=== PATIENT | male | born 1955 ===

== ENCOUNTER → 2019-06-17 10:55 | Outpatient (CLI) | payer OTHER, MEDICAID, SELFPAY ==
[2019-06-17 12:02] LABS: Hemoglobin A1C% w Est Avg Glu 7.1 % (4.0-6.0)
[2019-06-17 12:11] LABS: BUN Creatinine Ratio 16.7 (6-22); Blood Urea Nitrogen 15 mg/dL (9-20); Calcium 9.6 mg/dL (8.4-10.2); Carbon Dioxide 28 mmol/L (22-32); Chloride 102 mmol/L (98-107); Estimated Glomerular Filt Rate > 60.0 mL/min (>60); Glucose 140 mg/dL (80-110); HEMOLYSIS < 15 (0-50); Potassium 4.1 mmol/L (3.4-5.1); Sodium 137 mmol/L (137-145)
== END ==
PROVIDERS: Referring Provider Family Medicine; Visit Provider Family Medicine
DX: R73.03 Prediabetes (principal); I10 Essential (primary) hypertension
CPT/HCPCS: 36415; 80048; 83036

== ENCOUNTER → 2019-09-11 11:29 | Outpatient (CLI) | payer OTHER, MEDICAID, SELFPAY ==
[2019-09-11 12:56] LABS: Add Manual Diff / Slide Review NO; Basophils Absolute Auto 0 /uL (0-100); Basophils Percent Auto 0.4 % (0-2); Eosinophils Absolute Auto 400 /uL (0-450); Hemoglobin 15.7 g/dL (13.5-17.5); Lymphocytes Absolute Auto 1500 /uL (1100-4500); Lymphocytes Percent Auto 15.8 % (25-40); Mean Corpuscular HGB Conc 35.7 % (30-36); Mean Corpuscular Hemoglobin 32.4 PG (26-34); Mean Corpuscular Volume 90.9 fL (80-100); Monocytes Absolute Auto 800 /uL (0-900); Monocytes Percent Auto 8.2 % (3-14); Neutrophils Absolute Auto 6700 /uL (1500-7000); Neutrophils Percent Auto 71.6 % (50-75); Platelet Count 195 X10^3/uL (150-400); Red Blood Cell Count 4.85 X10^6/uL (4.5-5.9); Red Cell Distribution Width 12.7 % (11.6-14.8); White Blood Cell Count 9.3 X10^3/uL (4.5-11.0)
[2019-09-11 13:31] LABS: BUN Creatinine Ratio 17.1 (6-22); Blood Urea Nitrogen 13 mg/dL (9-20); Calcium 9.9 mg/dL (8.4-10.2); Carbon Dioxide 27 mmol/L (22-32); Chloride 100 mmol/L (98-107); Cholesterol 175 mg/dL (140-199); Estimated Glomerular Filt Rate > 60.0 mL/min (>60); Glucose 181 mg/dL (80-110); HDL Cholesterol 47 mg/dL (40-60); HEMOLYSIS < 15 (0-50); LDL Cholesterol Calculated 82 mg/dL (<100); Potassium 4.5 mmol/L (3.4-5.1); Sodium 137 mmol/L (137-145); Triglycerides 231 mg/dL (35-150)
== END ==
PROVIDERS: Referring Provider Internal Medicine Cardiovascular Disease; Visit Provider Internal Medicine Cardiovascular Disease
DX: I10 Essential (primary) hypertension (principal)
CPT/HCPCS: 36415; 80048; 80061; 85025

== ENCOUNTER → 2020-01-29 11:34 | Outpatient (CLI) | payer MEDICARE, MEDICAID, SELFPAY ==
[2020-01-29 12:44] LABS: BUN Creatinine Ratio 19.5 (6-22); Blood Urea Nitrogen 15 mg/dL (9-20); Calcium 9.6 mg/dL (8.4-10.2); Carbon Dioxide 26 mmol/L (22-32); Chloride 102 mmol/L (98-107); Cholesterol 160 mg/dL (140-199); Estimated Glomerular Filt Rate > 60.0 mL/min (>60); Glucose 151 mg/dL (80-110); HDL Cholesterol 48 mg/dL (40-60); HEMOLYSIS < 15 (0-50); LDL Cholesterol Calculated 76 mg/dL (<100); Potassium 4.5 mmol/L (3.4-5.1); Sodium 136 mmol/L (137-145); Triglycerides 180 mg/dL (35-150)
== END ==
PROVIDERS: Nurse Practitioner; Referring Provider Internal Medicine Cardiovascular Disease; Visit Provider Internal Medicine Cardiovascular Disease
DX: I10 Essential (primary) hypertension (principal); E78.1 Pure hyperglyceridemia
CPT/HCPCS: 36415; 80048; 80061

== ENCOUNTER → 2020-10-30 11:28 | Outpatient (CLI) | payer MEDICARE, SELFPAY ==
[2020-10-30 12:04] LABS: Add Manual Diff / Slide Review NO; Basophils Absolute Auto 0 /uL (0-100); Basophils Percent Auto 0.3 % (0-2); Eosinophils Absolute Auto 200 /uL (0-450); Eosinophils Percent Auto 2.8 % (2-4); Hemoglobin 15.6 g/dL (13.5-17.5); Lymphocytes Absolute Auto 1300 /uL (1100-4500); Lymphocytes Percent Auto 17.9 % (25-40); Mean Corpuscular HGB Conc 34.6 % (30-36); Mean Corpuscular Hemoglobin 31.3 PG (26-34); Mean Corpuscular Volume 90.6 fL (80-100); Monocytes Absolute Auto 700 /uL (0-900); Monocytes Percent Auto 10.1 % (3-14); Neutrophils Absolute Auto 4900 /uL (1500-7000); Neutrophils Percent Auto 68.9 % (50-75); Platelet Count 187 X10^3/uL (150-400); Red Blood Cell Count 4.97 X10^6/uL (4.5-5.9); Red Cell Distribution Width 12.4 % (11.6-14.8); White Blood Cell Count 7.2 X10^3/uL (4.5-11.0)
[2020-10-30 12:15] LABS: Alanine Aminotransferase 37 IU/L (<50); Albumin 4.4 g/dL (3.5-5.0); Albumin Globulin Ratio 1.4 (1.0-2.8); Alkaline Phosphatase 97 U/L (38-126); Aspartate Aminotransferase 32 IU/L (17-59); BUN Creatinine Ratio 23.1 (6-22); Bilirubin Total 0.6 mg/dL (0.2-1.3); Blood Urea Nitrogen 15 mg/dL (9-20); Calcium 9.6 mg/dL (8.4-10.2); Carbon Dioxide 23 mmol/L (22-32); Chloride 104 mmol/L (98-107); Cholesterol 147 mg/dL (140-199); Estimated Glomerular Filt Rate > 60.0 mL/min (>60); Globulin 3.2 g/dL (1.7-4.1); Glucose 157 mg/dL (80-110); HDL Cholesterol 50 mg/dL (40-60); HEMOLYSIS < 15 (0-50); LDL Cholesterol Calculated 77 mg/dL (<100); Potassium 4.2 mmol/L (3.4-5.1); Sodium 137 mmol/L (137-145); Total Protein 7.6 g/dL (6.3-8.2); Triglycerides 99 mg/dL (35-150)
[2020-10-30 12:17] LABS: Hemoglobin A1C% w Est Avg Glu 7.7 % (4.0-6.0)
[2020-10-30 12:45] LABS: Prostate Specific Antigen Scrn 0.622 ng/mL (0.1-4.0)
[2020-10-30 15:19] LABS: Creatinine Urine Random 223.9 mg/dL
[2020-10-30 15:24] LABS: Microalbumin Urine Random 0.9 mg/dL (0-1.6)
== END ==
PROVIDERS: PCP Family Medicine; Referring Provider Family Medicine; Visit Provider Family Medicine
DX: E11.9 Type 2 diabetes mellitus without complications (principal); Z12.5 Encounter for screening for malignant neoplasm of prostate; E78.5 Hyperlipidemia, unspecified; I10 Essential (primary) hypertension; Z00.00 Encounter for general adult medical examination without abnormal findings
CPT/HCPCS: 36415; 80053; 80061; 82043; 82570; 83036; 85025; G0103

== ENCOUNTER → 2020-11-17 09:11 | Outpatient (CLI) | payer MEDICARE, SELFPAY ==
--- NOTE | 2020-11-17 15:50 | DIET.PN ---
Initial Diabetes MNT Assessment Name: Sarwat Roberts Date: 11/17/20 Time: 9:15-10am Dx: Type II Diabetes Provider: Low Vance Learning Style: Reading PMH: HLD, HTN, Psoriasis Sarwat has been newly diagnosed with T2DM. States he does not understand why his readings are high. Has been ?borderline? for a long time. Last two HgA1c have been >7%. Denies intake of ETOH, soda with sugar, or any refined sugars Likes bread, vegetables. He is unclear if this is genetic or lifestyle, or both. FH of DM paternal uncle. Preparing food is a ?chore?. Batch cooks meals. Shops at [employer], sometimes [employer]. States it is very important for him to learn about diabetes and make changes. Hearing is a barrier to education today--left his hearing aids at home. States he sometimes feels fatigue after eating 2 sandwiches. Will often nap after this meal. Also avoids eating on road trips to avoid fatigue. Seems likely he is experiencing hyperglycemia resulting in fatigue. Diet Recall: Morninc coffee with unsweetened cream or black 2p: 2 pieces chicken with a couple pieces of sushi (yesterday) or 2-3 eggs with 2 toast 5-6p: grazing until bed includes, bowl of peas with salt and parmesan, 2 spoons of pie, and additional foods he cannot recall Beverages: 32oz water, OJ sometimes Anthropometrics: Ht: 6?2? Wt:285.5# Weight changes: -10# in summer, re-gain back in winter Physical Activity: Barrier toe nail growth makes shoes uncomfortable to exercise in. 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 Currently using rowing machine (50 reps), elliptical (30 min) and resistance bands (10 min) most days. Self-Monitoring Blood Glucose: None currently, though he is interested in starting. Pertinent Labs: HgA1c: 7.7% H Diabetes Medications: 500 mg Metformin. Has not increased to BID yet. Nutrition Rx: Carbohydrates: Meal:30-60g (to start-reevaluate next visit) Snack:15-30g Nutrition Diagnosis: - Nutrition and food related knowledge deficit r/t new T2DM dx aeb pt report and HgA1c - Inconsistent energy intake r/t nutrition knowledge deficit aeb diet recall -Self monitoring deficit r/t new T2DM and not yet monitoring BG aeb Pt report Intervention: This participant was very receptive. Provided appropriate educational handouts. Discussed the following topics: - Completed intake assessment. Discussed barriers to care. - Pathophysiology of T2DM - HgA1c , diagnosis, and goal - Importance of self-monitoring, how often, and when to check. Suggested checking at different times to evaluate meals -Plate Method, impact of macronutrients on blood sugar - Rec servings for carbohydrates at meals and snacks - Heart health nutrition - Role of physical activity and following provider guidelines for safety - Created SMART goals for pt self-care and success - Provided written diabetes information for further review at home Goals: - Aim for 30-60g CHO per meal to start - Add protein to each meal - Check with provider and pharmacy for SMBG supplies (bring next visit) - Increase Metformin to BID as rx?d by provider Follow-up: GREG MOON follow-up in 2 weeks Topics to review next visit: meal timing, carb counting, pairing macronutrients and spreading out CHO, meal planning Rosanna Barrow RDN, SARAI Certified Diabetes Care and Shoemaker Apprentice P: [phone] Thank you for this referral :
== END ==
PROVIDERS: PCP Family Medicine; Referring Provider Family Medicine; Visit Provider Family Medicine
DX: E11.9 Type 2 diabetes mellitus without complications (principal); Z71.3 Dietary counseling and surveillance; Z79.84 Long term (current) use of oral hypoglycemic drugs; E78.5 Hyperlipidemia, unspecified; I10 Essential (primary) hypertension; L40.9 Psoriasis, unspecified; E66.9 Obesity, unspecified; Z68.36 Body mass index [BMI] 36.0-36.9, adult
CPT/HCPCS: 97802

== ENCOUNTER → 2020-12-01 09:53 | Outpatient (CLI) | payer MEDICARE, SELFPAY ==
--- NOTE | 2020-12-01 10:24 | DIET.PN1 ---
Initial Diabetes MNT Assessment Name: Sarwat Roberts Date: 11/17/20 Time: 9:15-10am Dx: Type II Diabetes Provider: Low Vance Learning Style: Reading PMH: HLD, HTN, Psoriasis Sarwat has been newly diagnosed with T2DM. States he does not understand why his readings are high. Has been ?borderline? for a long time. Last two HgA1c have been >7%. Denies intake of ETOH, soda with sugar, or any refined sugars Likes bread, vegetables. He is unclear if this is genetic or lifestyle, or both. FH of DM paternal uncle. Preparing food is a ?chore?. Batch cooks meals. Shops at [employer], sometimes [employer]. States it is very important for him to learn about diabetes and make changes. Hearing is a barrier to education today--left his hearing aids at home. States he sometimes feels fatigue after eating 2 sandwiches. Will often nap after this meal. Also avoids eating on road trips to avoid fatigue. Seems likely he is experiencing hyperglycemia resulting in fatigue. Diet Recall: Morninc coffee with unsweetened cream or black 2p: 2 pieces chicken with a couple pieces of sushi (yesterday) or 2-3 eggs with 2 toast 5-6p: grazing until bed includes, bowl of peas with salt and parmesan, 2 spoons of pie, and additional foods he cannot recall Beverages: 32oz water, OJ sometimes Anthropometrics: Ht: 6?2? Wt:285.5# Weight changes: -10# in summer, re-gain back in winter Physical Activity: Barrier toe nail growth makes shoes uncomfortable to exercise in. 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 Currently using rowing machine (50 reps), elliptical (30 min) and resistance bands (10 min) most days. Self-Monitoring Blood Glucose: None currently, though he is interested in starting. Pertinent Labs: HgA1c: 7.7% H Diabetes Medications: 500 mg Metformin. Has not increased to BID yet. Nutrition Rx: Carbohydrates: Meal:30-60g (to start-reevaluate next visit) Snack:15-30g Nutrition Diagnosis: - Nutrition and food related knowledge deficit r/t new T2DM dx aeb pt report and HgA1c - Inconsistent energy intake r/t nutrition knowledge deficit aeb diet recall -Self monitoring deficit r/t new T2DM and not yet monitoring BG aeb Pt report Intervention: This participant was very receptive. Provided appropriate educational handouts. Discussed the following topics: - Completed intake assessment. Discussed barriers to care. - Pathophysiology of T2DM - HgA1c , diagnosis, and goal - Importance of self-monitoring, how often, and when to check. Suggested checking at different times to evaluate meals -Plate Method, impact of macronutrients on blood sugar - Rec servings for carbohydrates at meals and snacks - Heart health nutrition - Role of physical activity and following provider guidelines for safety - Created SMART goals for pt self-care and success - Provided written diabetes information for further review at home Goals: - Aim for 30-60g CHO per meal to start - Add protein to each meal - Check with provider and pharmacy for SMBG supplies (bring next visit) - Increase Metformin to BID as rx?d by provider Follow-up: GREG MOON follow-up in 2 weeks Topics to review next visit: meal timing, carb counting, pairing macronutrients and spreading out CHO, meal planning Rosanna Barrow RDN, [facility] Certified Diabetes Care and Rn School P: [phone] Thank you for this referra
--- NOTE | 2020-12-01 10:25 | DIET.PN1 ---
Initial Diabetes MNT Assessment Name: Sarwat Roberts Date: 11/17/20 Time: 9:15-10am Dx: Type II Diabetes Provider: Low Vance Learning Style: Reading PMH: HLD, HTN, Psoriasis Sarwat has been newly diagnosed with T2DM. States he does not understand why his readings are high. Has been ?borderline? for a long time. Last two HgA1c have been >7%. Denies intake of ETOH, soda with sugar, or any refined sugars Likes bread, vegetables. He is unclear if this is genetic or lifestyle, or both. FH of DM paternal uncle. Preparing food is a ?chore?. Batch cooks meals. Shops at [employer], sometimes [employer]. States it is very important for him to learn about diabetes and make changes. Hearing is a barrier to education today--left his hearing aids at home. States he sometimes feels fatigue after eating 2 sandwiches. Will often nap after this meal. Also avoids eating on road trips to avoid fatigue. Seems likely he is experiencing hyperglycemia resulting in fatigue. Diet Recall: Morninc coffee with unsweetened cream or black 2p: 2 pieces chicken with a couple pieces of sushi (yesterday) or 2-3 eggs with 2 toast 5-6p: grazing until bed includes, bowl of peas with salt and parmesan, 2 spoons of pie, and additional foods he cannot recall Beverages: 32oz water, OJ sometimes Anthropometrics: Ht: 6?2? Wt:285.5# Weight changes: -10# in summer, re-gain back in winter Physical Activity: Barrier toe nail growth makes shoes uncomfortable to exercise in. 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 Currently using rowing machine (50 reps), elliptical (30 min) and resistance bands (10 min) most days. Self-Monitoring Blood Glucose: None currently, though he is interested in starting. Pertinent Labs: HgA1c: 7.7% H Diabetes Medications: 500 mg Metformin. Has not increased to BID yet. Nutrition Rx: Carbohydrates: Meal:30-60g (to start-reevaluate next visit) Snack:15-30g Nutrition Diagnosis: - Nutrition and food related knowledge deficit r/t new T2DM dx aeb pt report and HgA1c - Inconsistent energy intake r/t nutrition knowledge deficit aeb diet recall -Self monitoring deficit r/t new T2DM and not yet monitoring BG aeb Pt report Intervention: This participant was very receptive. Provided appropriate educational handouts. Discussed the following topics: - Completed intake assessment. Discussed barriers to care. - Pathophysiology of T2DM - HgA1c , diagnosis, and goal - Importance of self-monitoring, how often, and when to check. Suggested checking at different times to evaluate meals -Plate Method, impact of macronutrients on blood sugar - Rec servings for carbohydrates at meals and snacks - Heart health nutrition - Role of physical activity and following provider guidelines for safety - Created SMART goals for pt self-care and success - Provided written diabetes information for further review at home Goals: - Aim for 30-60g CHO per meal to start - Add protein to each meal - Check with provider and pharmacy for SMBG supplies (bring next visit) - Increase Metformin to BID as rx?d by provider Follow-up: GREG MOON follow-up in 2 weeks Topics to review next visit: meal timing, carb counting, pairing macronutrients and spreading out CHO, meal planning Rosanna Barrow RDN, SARAI Certified Diabetes Care and Barn And Property Manager P: [phone] Thank you for this referra
--- NOTE | 2020-12-01 10:26 | DIET.PN1 ---
Diabetes MNT Assessment Name: Sarwat Roberts Date: 12/01/20 Time: 10-11am Dx: Type II Diabetes Provider: Low Vance Learning Style: Reading PMH: HLD, HTN, Psoriasis Sarwat presents for follow-up for his newly dx T2DM. States he has lost his hearing aids, and he does not see his pattern keeper until mid December. Due to this, he will wait to attend DM ed classes until January. Reports overall feeling better since taking Metformin- less anxious/agitated feeling, less ups and downs in mood, less sleepy. Has recently incorporated chobani yogurt for breakfast. Needs quick and easy meal ideas. Often will go hours after breakfast without eating and then snack through the night. once I start eating, I cannot stop. Anthropometrics: Ht: 6?2? Last Wt:285.5# Weight changes: -10# in summer, re-gain back in winter Physical Activity: No change. Last visit: Barrier toe nail growth makes shoes uncomfortable to exercise in. 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 Currently using rowing machine (50 reps), elliptical (30 min) and resistance bands (10 min) most days. Self-Monitoring Blood Glucose: Started checking Bg with a meter he bought OTC. Checking fasting and then a random BG through the day. Fastings often elevated per log book (104, 156 H, 133 H, 190 H, 231 H, 156 H). Random range: 102-177 mg/dL. Pertinent Labs: HgA1c: 7.7% H Diabetes Medications: Increased Metformin to 500 mg BID Nutrition Rx: Carbohydrates: Meal:45g Snack:15-30g Nutrition Diagnosis: - Nutrition and food related knowledge deficit r/t new T2DM dx aeb pt report and HgA1c- in progress - Inconsistent energy intake r/t nutrition knowledge deficit aeb diet recall- in progress -Self monitoring deficit r/t new T2DM and not yet monitoring BG aeb Pt report- improved Intervention: This participant was very receptive. Provided appropriate educational handouts. Discussed the following topics: - when to check BG and provided log sheet - BG goals per ADA: 80-130 mg/dL fasting and <180 mg/dL 1-2 hr pc - Importance of consistent energy intake to avoid grazing through the evening - pairing macronutrients for better bg mgmgnt - importance of water intake and impact on bg - brainstormed meal plan based on his food preferences Goals: - Aim for 30-60g CHO per meal to start- d/c - Add protein to each meal- in progress - Check with provider and pharmacy for SMBG supplies- in progress - Increase Metformin to BID as rx?d by provider - met - Try to eat breakfast within 1 hour of waking- new - Try to eat q 3-5 hours- new - Drink water/measure water intake- new Follow-up: GREG MOON follow-up in 4 weeks; will take DSME classes in January Rosanna Barrow RDN, [facility] Certified Diabetes Care and Envelope Stamping Machine Operator P: [phone] Thank you for this referral
== END ==
PROVIDERS: PCP Family Medicine; Referring Provider Family Medicine; Visit Provider Family Medicine
DX: E11.9 Type 2 diabetes mellitus without complications (principal); I10 Essential (primary) hypertension; E78.5 Hyperlipidemia, unspecified; Z79.84 Long term (current) use of oral hypoglycemic drugs; Z71.3 Dietary counseling and surveillance; E66.9 Obesity, unspecified; Z68.36 Body mass index [BMI] 36.0-36.9, adult
CPT/HCPCS: 97803

== ENCOUNTER → 2020-12-30 09:50 | Outpatient (CLI) | payer MEDICARE, SELFPAY ==
--- NOTE | 2020-12-30 14:00 | DIAB.MNTFU ---
Diabetes MNT Assessment Follow-up Name: Sarwat Roberts Date: 12/30/20 Time: 10-1050am Dx: Type II Diabetes Provider: Low Preferred Learning Style: Reading PMH: HLD, HTN, Psoriasis Sarwat presents for follow-up for his newly dx T2DM. States he has seen his contractor general building for evaluation after losing his hearing aids. Reports getting new hearing aids may take some time. Not appropriate for diabetes ed classes without hearing assistance. Plans to revisit classes for February. RAMIREZ MOON will plan to see him in January for follow-up before Nov classes. If he is unable to attend classes, he may need to receive all diabetes ed in 1:1 due to hearing barrier. Reports more consistent nutrition intake with improved eating frequency and less grazing. Continues to struggle with ideas for dinner with minimal cooking. Current dinner ideas often convenience foods high in sodium (80-1200 mg per meal). This includes canned chili, frozen chicken melts, or canned soup. Carbohydrates are not excessive, but sodium is high. Reports BP checks daily, usually 140s over 80-90s (though admits he often does not pay attention to systolic number). States his losartan sometimes causes knee pain, and he will skip a dose and see inc in BP. States he would like to avoid weight gain this fall/winter. Diet recall: 7am coffee 8am: v8 9am: yogurt 2-3p: eggs 6p: fish with milk OR chicken melt x 2 with milk (50g CHO, 1000mg Na) OR 1 can chili (40g CHO, 1600 mg Na) 7p: apple (15-20g CHO) Anthropometrics: Ht: 6?2? Last Wt:285.5# Weight changes: -10# in summer, re-gain back in winter Physical Activity: Decrease in activity. Has moved his ellipical inside from [facility]. States he has not been using equipment often. Last visit: Using rowing machine (50 reps), elliptical (30 min) and resistance bands (10 min) most days. Self-Monitoring Blood Glucose: Morning numbers have reduced per his report. No BG log today for review. States all readings are <130 mg/dL, in goal range. Morning readings are often after V8 (regular) and coffee, so not a true fasting. States this reading is often under 110 mg/dL. Evening readings in 120s mg/dL. Pertinent Labs: HgA1c: 7.7% H, sees PCP end of January for new labs. Diabetes Medications: Metformin to 500 mg BID Nutrition Rx: Carbohydrates: Meal:45g Snack:15-30g Nutrition Diagnosis: - Nutrition and food related knowledge deficit r/t new T2DM dx aeb pt report and HgA1c- improved - Inconsistent energy intake r/t nutrition knowledge deficit aeb diet recall- improved -Excessive sodium intake r/t convenience foods aeb diet recall - new Intervention: This participant was very receptive. Provided appropriate educational handouts. Discussed the following topics: - Improved BG - Physical activity plan - meal timing - Label reading for carbs and sodium - Recs for sodium for heart health and impact on HTN - Discussing losartan with provider - Plate method and adding more veg to meals - Easy to prepare balanced dinners Participant Set SMART Goals: - Try to eat breakfast within 1 hour of waking- met - Try to eat q 3-5 hours- met - Drink water/measure water intake- not discussed today - Check FBG- new - Call about hearing aids today- new - Try new dinner ideas- new - Add vegetables to dinner- new - 60 min exercise 5 d per week- new Follow-up: GREG MOON follow-up in 4-5 weeks; will re-visit idea of Nov [facility] classes Rosanna Barrow RDN, [facility] Certified Diabetes Care and Digitizer Operator P: [phone] Thank you for this referral
== END ==
PROVIDERS: PCP Family Medicine; Referring Provider Family Medicine; Visit Provider Family Medicine
DX: E11.9 Type 2 diabetes mellitus without complications (principal); E78.5 Hyperlipidemia, unspecified; I10 Essential (primary) hypertension; L40.9 Psoriasis, unspecified; Z71.3 Dietary counseling and surveillance; Z79.84 Long term (current) use of oral hypoglycemic drugs
CPT/HCPCS: 97802

== ENCOUNTER → 2021-01-27 10:07 | Outpatient (CLI) | payer MEDICARE, SELFPAY ==
--- NOTE | 2021-01-27 17:14 | DIAB.FU ---
Follow-up Diabetes Education Assessment Name: Ignacio Roberts (Sarwat) Date: 01/27/21 Time: 0-1040a Dx: Type II Diabetes Sarwat presents for DM follow-up. Again does not have hearing aids today. He has purchased some on [place] due to some issues with insurance coverage. Happy with hearing aids quality. Interested in classes, but discussed how he must bring hearing aids for this to be appropriate. Sarwat reports increasing vegetable intake at lunch. Has reduced processed foods at dinner. Eating more fish. Carbs mostly in the form of milk x 36oz daily, apple at night, and yogurt in morning. Since last visit, had gained some weight after increasing kcal/CHO intake and limited phys activity. Saw how this impacted his BG readings and HTN. Decided to reincorporate exercise and reduce carb intake. Reports d/c losartan due to LE pains which impact his ability to exercise. Urged him to discuss with PCP since BP reportely 138-160 over 80-90s. Physical Activity: Restarted 60 mins of activity daily: aerobic, stretching, and resistance training. Self-Monitoring Blood Glucose: No log book today. Reports FBG often 100 mg/dL and highest readings during the day in 130s mg/dL. Did report a 25 point increase when he was not exercising. Diabetes Medications: Metformin 500 mg BID Pertinent Labs: 7.7% Past Medical History: (Last Updated 11/05/20 @ 14:04 by Kayden Kelsey MD) Hyperlipidemia Hypertension Psoriasis Intervention: This participant was very receptive. Provided appropriate educational handouts. Discussed the following topics: Recent blood sugar results and trends with phys activity and food Importance of HTN mgmgnt Review of general nutrition recommendations and current intake Physical activity plan and impact on blood sugars Prevention of complications not discussed today since he would prefer to cover this in class Reviewed benefits of fiber today and ways to increase on a lower carb diet Created SMART goals for patient self-care and success. Goals: Check FBG- met Call about hearing aids- met Try new dinners- met Add vegetables to meals- met 60 min exercise 5 days per week - met Purchase more almonds- new Add nuts to yogurt to increase fiber- new Add fruit BID- new cont 60 min activity- new Discuss HTN meds with PCP- new Follow-up: Sarwat would like to attend DSME classes in April. Encouraged him to call my office with questions or concerns prior to that prn. He seems very satisfied with current diet and lifestyle changes. Rosanna Barrow RDN, [facility] Certified Diabetes Care and Research And Development Chemist P: [phone] Thank you for this referral
== END ==
PROVIDERS: PCP Family Medicine; Referring Provider Family Medicine; Visit Provider Family Medicine
DX: E11.9 Type 2 diabetes mellitus without complications (principal); Z79.84 Long term (current) use of oral hypoglycemic drugs; Z71.3 Dietary counseling and surveillance
CPT/HCPCS: G0108

== ENCOUNTER → 2021-12-31 10:23 | Outpatient (CLI) | payer MEDICARE, SELFPAY ==
[2021-12-31 12:17] LABS: Add Manual Diff / Slide Review NO; Basophils Absolute Auto 0 /uL (0-100); Basophils Percent Auto 0.4 % (0-2); Eosinophils Absolute Auto 400 /uL (0-450); Eosinophils Percent Auto 4.2 % (2-4); Hematocrit 41.9 % (41-53); Hemoglobin 14.9 g/dL (13.5-17.5); Hemoglobin A1C% w Est Avg Glu 6.4 % (4.0-6.0); Lymphocytes Absolute Auto 1500 /uL (1100-4500); Lymphocytes Percent Auto 16.3 % (25-40); Mean Corpuscular HGB Conc 35.5 % (30-36); Mean Corpuscular Hemoglobin 31.9 PG (26-34); Mean Corpuscular Volume 89.9 fL (80-100); Monocytes Absolute Auto 800 /uL (0-900); Monocytes Percent Auto 8.6 % (3-14); Neutrophils Absolute Auto 6400 /uL (1500-7000); Neutrophils Percent Auto 70.5 % (50-75); Platelet Count 203 X10^3/uL (150-400); Red Blood Cell Count 4.66 X10^6/uL (4.5-5.9); Red Cell Distribution Width 12.5 % (11.6-14.8)
[2021-12-31 12:47] LABS: Alanine Aminotransferase 43 IU/L (<50); Albumin 4.5 g/dL (3.5-5.0); Albumin Globulin Ratio 1.6 (1.0-2.8); Alkaline Phosphatase 84 U/L (38-126); Aspartate Aminotransferase 36 IU/L (17-59); BUN Creatinine Ratio 14.9 (6-22); Blood Urea Nitrogen 13 mg/dL (9-20); Calcium 9.5 mg/dL (8.4-10.2); Carbon Dioxide 24 mmol/L (22-32); Chloride 103 mmol/L (98-107); Cholesterol 111 mg/dL (140-199); Estimated Glomerular Filt Rate > 60 mL/min (>60); Globulin 2.8 g/dL (1.7-4.1); Glucose 109 mg/dL (80-110); HDL Cholesterol 54 mg/dL (40-60); HEMOLYSIS < 15 (0-50); LDL Cholesterol Calculated 37 mg/dL (<100); Potassium 4.2 mmol/L (3.4-5.1); Sodium 139 mmol/L (137-145); Total Protein 7.3 g/dL (6.3-8.2); Triglycerides 101 mg/dL (35-150)
[2021-12-31 13:12] LABS: Prostate Specific Antigen Scrn 0.852 ng/mL (0.1-4.0)
[2021-12-31 13:46] LABS: Creatinine Urine Random 163.1 mg/dL
[2021-12-31 13:50] LABS: Microalbumi Creatinin Ratio Ur 9.1 ug/mg CR (<30); Microalbumin Urine Random 1.5 mg/dL (0-1.6)
== END ==
PROVIDERS: PCP Family Medicine; Referring Provider Family Medicine; Visit Provider Family Medicine
DX: E78.5 Hyperlipidemia, unspecified (principal); Z12.5 Encounter for screening for malignant neoplasm of prostate; I10 Essential (primary) hypertension
CPT/HCPCS: 36415; 80053; 80061; 82043; 82570; 83036; 85025; G0103

== ENCOUNTER 2022-08-23 14:15 | Outpatient (RCR) | payer MEDICARE, SELFPAY ==
--- NOTE | 2022-07-26 17:53 | PT.OIE ---
Addendum entered and electronically signed by Kyler Greenwood, PT 08/16/22 09:38: Initial Evaluation accidentally referred to right knee, this has been corrected to reflect the left knee Original Note: Current Diagnoses Pain in right knee (07/26/22) Stiffness of right knee, not elsewhere classified (07/26/22) Muscle weakness (generalized) (07/26/22) Other abnormalities of gait and mobility (07/26/22) Presence of left artificial knee joint (07/26/22) Past Medical History (Last Updated 12/30/21 @ 17:11 by Kayden Kelsey MD) Actinic keratosis Diabetes mellitus Hyperlipidemia Hypertension Osteoarthritis of left knee Psoriasis Skin neoplasm Past Surgical History (Last Updated 12/30/21 @ 17:11 by Kayden Kelsey MD) Status post right knee replacement Visit Care Team Role Provider Type Kayden Kelsey MD Family Provider Physician Primary Care Provider Specialty: Family Practice Address: [address] [place] [address], [facility] Email: [email or web address] Reinaldo Miranda PA-C Attending Provider Non-Staff Referring Provider Specialty: Medical Address: [facility] Orthopedics, [address] [place] [address], [id number] Email: Physical Therapy Initial Evaluation PT-OP-A Visit Information Start: 07/26/22 17:10 Freq: Status: Active Protocol: Document 07/26/22 15:15 DCW (Rec: 07/26/22 17:34 [facility] [id number]) Out-Patient Physical Therapy Visit Information Visit Information Visit Type Initial Evaluation Visit Start Time 15:15 Visit Stop Time 15:55 Total Visit Minutes 40 Visit Number 1 Number of [employer] Visits 0 Evaluation Information Evaluation Date 07/26/22 PT-OP-B Current Condition Start: 07/26/22 17:10 Freq: Status: Active Protocol: Document 07/26/22 15:15 DCW (Rec: 07/26/22 17:34 DC [id number]) Current Condition History of Current Condition Onset Date 07/06/22 Current Complaints R TKA History of Current Condition Pt is a 66 year old male presenting three weeks s/p R TKA. Pt notes that there was significant edema and pain since surgery, but it seems to have improved a lot over the past two days. Does admit that his knee still hurts all the time. Minimal activity since surgery. Admits he was given HEP, including SLR, SAQ, ankle pumps, and heels slides, but that he has not been doing any of them. Walks into PT today with a mild-moderate antalgic gait and no assistive device. Reports that he has crutches, but they're too short, and he still uses his FWW for longer distances, but not around the house or for short distances. Brother who is visiting from [place] has been staying with him for assistance since surgery. Pt very hard of hearing. Treatment Goals Patient/Caregiver Goals Improve walking ability, return to independent function PT-OP-C Subjective Start: 07/26/22 17:10 Freq: Status: Active Protocol: Document 07/26/22 15:15 DCW (Rec: 07/26/22 17:34 DCW [id number]) OP-PT Subjective Patient Comments Patient Comments I'm still basically in bed most of the time. Patient Questionnaires Lower Extremity Functional Scale LEFS Score 18/80 = 22.5% LEFS Impairment 60 to 79% Impaired (Score 17- 31) PT-OP-E Functional Tests Start: 07/26/22 17:10 Freq: Status: Active Protocol: Document 07/26/22 15:15 DCW (Rec: 07/26/22 17:34 DCW [id number]) Functional Tests 2 Minute Walk Test Distance 238' Device Used None Comments 1.98 ft/sec Timed Up and Go (TUG) Score 17.18 Comments Three-trial average (18.11, 17 .15, 16.28) TUG Impairment Rating 60 to <80% Impaired (Score 16- 17) PT-OP-F Manual Assessment Start: 07/26/22 17:10 Freq: Status: Active Protocol: Document 07/26/22 15:15 DCW (Rec: 07/26/22 17:34 DCW [id number]) Manual Assessments Soft Tissue Assessment Soft Tissue Mobility Assessment Mild LE edema and joint effusion Joint Mobility Assessment Joint Mobility Assessment Slight laxity with anterior draw on right, nothing that exceeds expectations following TKA PT-OP-G Mobility & Gait Start: 07/26/22 17:10 Freq: Status: Active Protocol: Document 07/26/22 15:15 DCW (Rec: 07/26/22 17:34 DCW [id number]) OP Gait Assessment Gait Gait Assistance Required: Independent Distance (Feet) 238 Able to Maintain Weight Bearing Status Yes During Gait Assistive Devices Assistive Device None Orthotic/Prosthetic Devices or Brace: No Gait Deviations General Gait Pattern Antalgic Factors Limiting Gait Function Factors Limiting Gait Function Limited Range of Motion,Pain Comments Gait Comments Mild angalgia, able to improve quality of gait with verbal cues PT-OP-K Range of Motion Start: 07/26/22 17:10 Freq: Status: Active Protocol: Document 07/26/22 15:15 DCW (Rec: 07/26/22 17:34 DCW [id number]) Knee Goniometric Range of Motion Knee Right Knee ROM WFL No Patient Position Sitting Flexion Active (degrees) 106 Flexion Passive (degrees) 106 Extension Active (degrees) 17 Extension Passive (degrees) 9 PT-OP-M Strength Start: 07/26/22 17:10 Freq: Status: Active Protocol: Document 07/26/22 15:15 DCW (Rec: 07/26/22 17:34 DCW [id number]) Knee Strength Knee Manual Muscle Testing Right Flexion (S2) 3+ Fair+ Extension (L3) 3 Fair PT-OP-Q Treatments Start: 07/26/22 17:10 Freq: Status: Active Protocol: Document 07/26/22 15:15 DCW (Rec: 07/26/22 17:34 DCW [id number]) Cardio Equipment Recumbent Bicycle Duration (Minutes) 3 Resistance 0 Seat Position 10 Other occasional full rotations PT-OP-T Assessment and Plan Start: 07/26/22 17:10 Freq: Status: Active Protocol: Document 07/26/22 15:15 DCW (Rec: 07/26/22 17:52 DCW [id number]) Physical Therapy Assessment Rehab Potential Rehabilitation Potential Excellent Evaluation Complexity Number of Personal Factors/Comorbidities 1-2 Number of Body Systems Impaired 1-2 Clinical Presentation at Evaluation Stable Impairments Impairments Activity Tolerance,Edema, Functional Activities, Functional Mobility,Gait,Pain, ROM Goals Three Impairment Pt scores a 17.18 on the TUG, indicating an increased risk of falls. Resident Surgeon Goal (LTG) Pt to improve TUG score to at <12, in order to demonstrate decreased falls risk LTG Duration 10/24/22 Two Impairment Limited right knee AROM (17?- 106?) Resident Surgeon Goal (LTG) Pt to increase right knee active ROM to 0?-120? in order to return to normal functional mobility. LTG Duration 10/24/22 One Impairment Pt does not have an appropriate home exercise program Short Term Goal (STG) Pt to be independent and compliant with an appropriate HEP STG Duration 08/25/22 Assessment Summary Assessment Pt presents three weeks s/p R TKA, fairly as expected with mobility, ROM, strength, and gait deficiencies. Pt has not been very active, attempted to reenforce need to perform HEP for strengthening and ROM. Pt should benefit from skilled therapy focusing on balance and gait training, as well as knee ROM and strengthening. Pt instructed to focus on improved gait pattern to eliminate antalgic limp. Physical Therapy Plan Frequency and Duration Frequency of Treatment 2x/Week Plan of Care Start Date 07/26/22 Plan of Care End Date 10/24/22 Therapeutic Interventions Therapeutic Interventions Home Exercise Program,Joint Mobilizations,Manual Therapy, Patient/Caregiver Education, Self-Care/Home Management,Soft Tissue Mobilization, Therapeutic Activities, Therapeutic Exercises Modalities Cold Pack/Ice Massage,Electric Stimulation,Hot Packs, Ultrasound Next Visit Focus/Plan Next Note Type Treatment Note Next Visit Plan Knee ROM, LE strengthening, gait training
--- NOTE | 2022-07-26 17:53 | PT.OPPOC ---
Physical, Occupational & Speech Therapy At [facility] Current Diagnoses Pain in right knee (07/26/22) Stiffness of right knee, not elsewhere classified (07/26/22) Muscle weakness (generalized) (07/26/22) Other abnormalities of gait and mobility (07/26/22) Presence of left artificial knee joint (07/26/22) Visit Care Team Role Provider Type Kayden Kelsey MD Family Provider Physician Primary Care Provider Specialty: Family Practice Address: [address] [place] [address], [id number] Email: [email or web address] Reinaldo Miranda PA-C Attending Provider Non-Staff Referring Provider Specialty: Medical Address: [facility] Orthopedics, [address] [place] [address], [id number] Email: Plan Of Care PT-OP-T Assessment and Plan Start: 07/26/22 17:10 Freq: Status: Active Protocol: Document 07/26/22 15:15 DCW (Rec: 07/26/22 17:52 DCW [id number]) Physical Therapy Assessment Rehab Potential Rehabilitation Potential Excellent Evaluation Complexity Number of Personal Factors/Comorbidities 1-2 Number of Body Systems Impaired 1-2 Clinical Presentation at Evaluation Stable Impairments Impairments Activity Tolerance,Edema, Functional Activities, Functional Mobility,Gait,Pain, ROM Goals Three Impairment Pt scores a 17.18 on the TUG, indicating an increased risk of falls. Long-Term Goal (LTG) Pt to improve TUG score to at <12, in order to demonstrate decreased falls risk LTG Duration 10/24/22 Two Impairment Limited right knee AROM (17?- 106?) Long-Term Goal (LTG) Pt to increase right knee active ROM to 0?-120? in order to return to normal functional mobility. LTG Duration 10/24/22 One Impairment Pt does not have an appropriate home exercise program Short Term Goal (STG) Pt to be independent and compliant with an appropriate HEP STG Duration 08/25/22 Assessment Summary Assessment Pt presents three weeks s/p R TKA, fairly as expected with mobility, ROM, strength, and gait deficiencies. Pt has not been very active, attempted to reenforce need to perform HEP for strengthening and ROM. Pt should benefit from skilled therapy focusing on balance and gait training, as well as knee ROM and strengthening. Pt instructed to focus on improved gait pattern to eliminate antalgic limp. Physical Therapy Plan Frequency and Duration Frequency of Treatment 2x/Week Plan of Care Start Date 07/26/22 Plan of Care End Date 10/24/22 Therapeutic Interventions Therapeutic Interventions Home Exercise Program,Joint Mobilizations,Manual Therapy, Patient/Caregiver Education, Self-Care/Home Management,Soft Tissue Mobilization, Therapeutic Activities, Therapeutic Exercises Modalities Cold Pack/Ice Massage,Electric Stimulation,Hot Packs, Ultrasound Next Visit Focus/Plan Next Note Type Treatment Note Next Visit Plan Knee ROM, LE strengthening, gait training Plan of Care Dates Plan of Care Start Date 07/26/22 Plan of Care End Date 10/24/22 Electronically Signed by: Kyler Greenwood, PT 07/26/22 2579 If you are in agreement with this Plan of Care, please return a signed and dated copy. I have reviewed this Plan of Care and certify that the skilled therapy services above are required to meet the patient?s needs. Physician Signature Date Printed Name and Credentials Clinical Instructor Signature Printed Name and Credentials
--- NOTE | 2022-08-01 17:39 | PT.OTN ---
Current Diagnoses Pain in right knee (08/01/22) Stiffness of right knee, not elsewhere classified (08/01/22) Muscle weakness (generalized) (08/01/22) Other abnormalities of gait and mobility (08/01/22) Presence of left artificial knee joint (08/01/22) Physical Therapy Treatment Note PT-OP-A Visit Information Start: 07/26/22 17:10 Freq: Status: Active Protocol: Document 08/01/22 12:46 LRN (Rec: 08/01/22 14:17 LRN [id number]) Out-Patient Physical Therapy Visit Information Visit Information Visit Type Treatment Note Visit Note POLICE SPECIALIST Jose Carlos perfromed treatment under the supervision of PT Yamilka. Visit Start Time 13:00 Visit Stop Time 13:40 Total Visit Minutes 40 Visit Number 2 Evaluation Information Evaluation Date 07/26/22 Precautions Precautions PO[place] IRA. PT-OP-B Current Condition Start: 07/26/22 17:10 Freq: Status: Active Protocol: Document 07/26/22 15:15 DCW (Rec: 07/26/22 17:34 DCW [id number]) Current Condition History of Current Condition Onset Date 07/06/22 Current Complaints R TKA History of Current Condition Pt is a 66 year old male presenting three weeks s/p R TKA. Pt notes that there was significant edema and pain since surgery, but it seems to have improved a lot over the past two days. Does admit that his knee still hurts all the time. Minimal activity since surgery. Admits he was given HEP, including SLR, SAQ, ankle pumps, and heels slides, but that he has not been doing any of them. Walks into PT today with a mild-moderate antalgic gait and no assistive device. Reports that he has crutches, but they're too short, and he still uses his FWW for longer distances, but not around the house or for short distances. Brother who is visiting from [place] has been staying with him for assistance since surgery. Pt very hard of hearing. Treatment Goals Patient/Caregiver Goals Improve walking ability, return to independent function PT-OP-C Subjective Start: 07/26/22 17:10 Freq: Status: Active Protocol: Document 08/01/22 12:46 LRN (Rec: 08/01/22 14:17 LRN [id number]) OP-PT Subjective Patient Comments Patient Comments Pt reports feeling very sore in L knee today. Thought he walked too much on Monday while he was at the grocery store. PT-OP-E Functional Tests Start: 07/26/22 17:10 Freq: Status: Active Protocol: Document 07/26/22 15:15 DCW (Rec: 07/26/22 17:34 DCW [id number]) Functional Tests 2 Minute Walk Test Distance 238' Device Used None Comments 1.98 ft/sec Timed Up and Go (TUG) Score 17.18 Comments Three-trial average (18.11, 17 .15, 16.28) TUG Impairment Rating 60 to <80% Impaired (Score 16- 17) PT-OP-F Manual Assessment Start: 07/26/22 17:10 Freq: Status: Active Protocol: Document 07/26/22 15:15 DCW (Rec: 07/26/22 17:34 DCW [id number]) Manual Assessments Soft Tissue Assessment Soft Tissue Mobility Assessment Mild LE edema and joint effusion Joint Mobility Assessment Joint Mobility Assessment Slight laxity with anterior draw on right, nothing that exceeds expectations following TKA PT-OP-G Mobility & Gait Start: 07/26/22 17:10 Freq: Status: Active Protocol: Document 07/26/22 15:15 DCW (Rec: 07/26/22 17:34 DCW [id number]) OP Gait Assessment Gait Gait Assistance Required: Independent Distance (Feet) 238 Able to Maintain Weight Bearing Status Yes During Gait Assistive Devices Assistive Device None Orthotic/Prosthetic Devices or Brace: No Gait Deviations General Gait Pattern Antalgic Factors Limiting Gait Function Factors Limiting Gait Function Limited Range of Motion,Pain Comments Gait Comments Mild angalgia, able to improve quality of gait with verbal cues PT-OP-K Range of Motion Start: 07/26/22 17:10 Freq: Status: Active Protocol: Document 07/26/22 15:15 DCW (Rec: 07/26/22 17:34 DCW [id number]) Knee Goniometric Range of Motion Knee Right Knee ROM WFL No Patient Position Sitting Flexion Active (degrees) 106 Flexion Passive (degrees) 106 Extension Active (degrees) 17 Extension Passive (degrees) 9 PT-OP-M Strength Start: 07/26/22 17:10 Freq: Status: Active Protocol: Document 04/18/23 15:15 DCW (Rec: 07/26/22 17:34 DCW [id number]) Knee Strength Knee Manual Muscle Testing Right Flexion (S2) 3+ Fair+ Extension (L3) 3 Fair PT-OP-Q Treatments Start: 07/26/22 17:10 Freq: Status: Active Protocol: Document 08/01/22 12:46 LRN (Rec: 08/01/22 14:17 LRN [id number]) Cardio Equipment Recumbent Elliptical (Biodex) Duration (Minutes) 5 Resistance 2 Seat Position 13 Other Pt feels knee is loosening up. Therapeutic Exercises Supine Exercises HS Stretch Side left Equipment Used Gait belt Reps/Minutes 2x30 Comments Wasn't feeling stretch Quad Sets Side left Reps/Minutes 2x10 Comments Pt with ext lag, provided cues for decreased extension. SLR Side left Reps/Minutes 2x10 Comments Pt reports some soreness, provided cues for knee straight Standing Exercises Gastroc Stretch Side left Reps/Minutes 2x30 Comments Feeling good Stretch, reports soreness. Lunge Stretch Side left Equipment Used Stair Reps/Minutes 3x30 Comments Some discomfort, less so than knee Ext. Manual Therapy Treatment Soft Tissue Mobilization Edema massage L knee Body Location L knee Intensity/Depth Superficial Body Position Supine Comments Pt warm to touch, has ext leg keeping LLE from fully extending. Self-Care/Home Management Treatment Education Patient Education Home Exercise Program,Pain Management Other Education Provided education on frequency/intensity of using ice at home and setup for pain management. Added to HEP:Quad sets, SLR, HO not given. Activities Self-Care/Home Management Activities Increased height of pt's FWW to improve pt posture with gait. PT-OP-R Modalities Start: 07/26/22 17:10 Freq: Status: Active Protocol: Document 08/01/22 12:46 LRN (Rec: 08/01/22 14:17 LRN [id number]) Hot Pack/Cold Pack Treatment L knee Cold Pack Location L knee Patient Position Supine Treatment Duration (minutes) 8 Comments Pt L knee flexed in supine with wedge under feet, knee ext too painful PT-OP-T Assessment and Plan Start: 07/26/22 17:10 Freq: Status: Active Protocol: Document 08/01/22 12:46 LRN (Rec: 08/01/22 14:17 LRN [id number]) Physical Therapy Assessment Goals Three Impairment Pt scores a 17.18 on the TUG, indicating an increased risk of falls. Chcf Goal (LTG) Pt to improve TUG score to at <12, in order to demonstrate decreased falls risk LTG Duration 10/24/22 Two Impairment Limited right knee AROM (17?- 106?) Software Developer Mid Level Goal (LTG) Pt to increase right knee active ROM to 0?-120? in order to return to normal functional mobility. LTG Duration 10/24/22 One Impairment Pt does not have an appropriate home exercise program Short Term Goal (STG) Pt to be independent and compliant with an appropriate HEP STG Duration 08/25/22 Assessment Summary Assessment Pt continues to have ext lag in L knee, reports increased pain with knee ext. Pt initally required AAROM for SLR, progressed to AROM 1x10. Educated pt on frequency of ice for L knee pain management at home and HEP of quad sets/ SLR, no HO given. Pt L knee noted to be warmer to touch and swollen compared to R knee . Physical Therapy Plan Frequency and Duration Frequency of Treatment 2x/Week Plan of Care Start Date 07/26/22 Plan of Care End Date 10/24/22 Therapeutic Interventions Therapeutic Interventions Home Exercise Program,Joint Mobilizations,Manual Therapy, Patient/Caregiver Education, Self-Care/Home Management,Soft Tissue Mobilization, Therapeutic Activities, Therapeutic Exercises Modalities Cold Pack/Ice Massage,Electric Stimulation,Hot Packs, Ultrasound Next Visit Focus/Plan Next Note Type Treatment Note Next Visit Plan Assess carryover of HEP (Quad sets, SLR) and home ice treatment. Progress exercises if pain has been reduced and gait training.
--- NOTE | 2022-08-09 17:30 | PT.OTN ---
Current Diagnoses Pain in right knee (08/09/22) Stiffness of right knee, not elsewhere classified (08/09/22) Muscle weakness (generalized) (08/09/22) Other abnormalities of gait and mobility (08/09/22) Presence of left artificial knee joint (08/09/22) Physical Therapy Treatment Note PT-OP-A Visit Information Start: 07/26/22 17:10 Freq: Status: Active Protocol: Document 08/09/22 13:54 SW (Rec: 08/09/22 17:29 SW [id number]) Out-Patient Physical Therapy Visit Information Visit Information Visit Type Treatment Note Visit Start Time 13:47 Visit Stop Time 15:33 Total Visit Minutes 46 Visit Number 3 Number of MACHINE SNELLER Visits 1 Precautions Precautions [place]. PT-OP-B Current Condition Start: 07/26/22 17:10 Freq: Status: Active Protocol: Document 07/26/22 15:15 DCW (Rec: 07/26/22 17:34 DCW [id number]) Current Condition History of Current Condition Onset Date 07/06/22 Current Complaints R TKA History of Current Condition Pt is a 66 year old male presenting three weeks s/p R TKA. Pt notes that there was significant edema and pain since surgery, but it seems to have improved a lot over the past two days. Does admit that his knee still hurts all the time. Minimal activity since surgery. Admits he was given HEP, including SLR, SAQ, ankle pumps, and heels slides, but that he has not been doing any of them. Walks into PT today with a mild-moderate antalgic gait and no assistive device. Reports that he has crutches, but they're too short, and he still uses his FWW for longer distances, but not around the house or for short distances. Brother who is visiting from [place] has been staying with him for assistance since surgery. Pt very hard of hearing. Treatment Goals Patient/Caregiver Goals Improve walking ability, return to independent function PT-OP-C Subjective Start: 07/26/22 17:10 Freq: Status: Active Protocol: Document 08/09/22 13:54 SW (Rec: 08/09/22 17:29 SW [id number]) OP-PT Subjective Patient Comments Patient Comments Patient reports feeling more tired lately, denies any change in activity, denies any other symptoms except fatigue . He took a pain pill last session 30 min prior to session, and this session he chose not to so he can see how it goes. Reports same amount of discomfort that was present last session. PT-OP-E Functional Tests Start: 07/26/22 17:10 Freq: Status: Active Protocol: Document 07/26/22 15:15 DCW (Rec: 07/26/22 17:34 DCW [id number]) Functional Tests 2 Minute Walk Test Distance 238' Device Used None Comments 1.98 ft/sec Timed Up and Go (TUG) Score 17.18 Comments Three-trial average (18.11, 17 .15, 16.28) TUG Impairment Rating 60 to <80% Impaired (Score 16- 17) PT-OP-F Manual Assessment Start: 07/26/22 17:10 Freq: Status: Active Protocol: Document 07/26/22 15:15 DCW (Rec: 07/26/22 17:34 DCW [id number]) Manual Assessments Soft Tissue Assessment Soft Tissue Mobility Assessment Mild LE edema and joint effusion Joint Mobility Assessment Joint Mobility Assessment Slight laxity with anterior draw on right, nothing that exceeds expectations following TKA PT-OP-G Mobility & Gait Start: 07/26/22 17:10 Freq: Status: Active Protocol: Document 07/26/22 15:15 DCW (Rec: 07/26/22 17:34 DCW [id number]) OP Gait Assessment Gait Gait Assistance Required: Independent Distance (Feet) 238 Able to Maintain Weight Bearing Status Yes During Gait Assistive Devices Assistive Device None Orthotic/Prosthetic Devices or Brace: No Gait Deviations General Gait Pattern Antalgic Factors Limiting Gait Function Factors Limiting Gait Function Limited Range of Motion,Pain Comments Gait Comments Mild angalgia, able to improve quality of gait with verbal cues PT-OP-K Range of Motion Start: 07/26/22 17:10 Freq: Status: Active Protocol: Document 07/26/22 15:15 DCW (Rec: 07/26/22 17:34 DCW [id number]) Knee Goniometric Range of Motion Knee Right Knee ROM WFL No Patient Position Sitting Flexion Active (degrees) 106 Flexion Passive (degrees) 106 Extension Active (degrees) 17 Extension Passive (degrees) 9 PT-OP-M Strength Start: 07/26/22 17:10 Freq: Status: Active Protocol: Document 07/26/22 15:15 DCW (Rec: 07/26/22 17:34 DCW [id number]) Knee Strength Knee Manual Muscle Testing Right Flexion (S2) 3+ Fair+ Extension (L3) 3 Fair PT-OP-Q Treatments Start: 07/26/22 17:10 Freq: Status: Active Protocol: Document 08/09/22 13:54 SW (Rec: 08/09/22 17:29 SW [id number]) Cardio Equipment Bicycle (Upright) Duration (Minutes) 4 Resistance 6 Seat Position 8 Therapeutic Exercises Supine Exercises Knee Flex Supine Exercise Name Knee flex stretch Side left Resistance AROM Reps/Minutes 3 x 15 sec hold Knee Ext Supine Exercise Name Knee ext w/ 2 lb weight Side left Resistance 2 lb Reps/Minutes x3 min Comments Pt did not tolerate well d/t discomfort HS Stretch Side left Equipment Used Gait belt Reps/Minutes 2x30 Comments Wasn't feeling stretch Quad Sets Side left Reps/Minutes 2x10 Comments Pt with ext lag, provided cues for decreased extension. SLR Side left Reps/Minutes 2x10 Comments Pt reports some soreness, provided cues for knee straight Sitting Exercises SAQ Side left Resistance AROM Reps/Minutes 2x10 Comments VC for trunk/hip compensation Standing Exercises Gastroc Stretch Side left Reps/Minutes 2x30 Comments Feeling good Stretch, reports soreness. Lunge Stretch Side left Equipment Used counter support Reps/Minutes 3x30 Comments Some discomfort, less so than knee Ext. Manual Therapy Treatment Soft Tissue Mobilization Scar mobilization Body Location L Knee Mobilization Type Other Intensity/Depth Superficial Body Position Supine Comments Gentle scar mobilization to assist with scar formation, laying of the fibers, and decrease adhesion. PT-OP-R Modalities Start: 07/26/22 17:10 Freq: Status: Active Protocol: Document 08/09/22 13:54 SW (Rec: 08/09/22 17:29 SW [id number]) Hot Pack/Cold Pack Treatment L knee Cold Pack Location L knee Patient Position Supine Treatment Duration (minutes) 8 Comments Pt L knee flexed in supine with wedge under feet, knee ext too painful, 2 layers of towel, ortega within reach PT-OP-T Assessment and Plan Start: 07/26/22 17:10 Freq: Status: Active Protocol: Document 08/09/22 13:54 SW (Rec: 08/09/22 17:29 SW [id number]) Physical Therapy Assessment Goals Three Impairment Pt scores a 17.18 on the TUG, indicating an increased risk of falls. Market Research Analyst Goal (LTG) Pt to improve TUG score to at <12, in order to demonstrate decreased falls risk LTG Duration 10/24/22 Two Impairment Limited right knee AROM (17?- 106?) Detention Goal (LTG) Pt to increase right knee active ROM to 0?-120? in order to return to normal functional mobility. LTG Duration 10/24/22 One Impairment Pt does not have an appropriate home exercise program Short Term Goal (STG) Pt to be independent and compliant with an appropriate HEP STG Duration 08/25/22 Assessment Summary Assessment Patient reports discomfort throughout session, recommend discussing pain management next session, to assist in the progression with gaining ROM/ strength with knee replacement. Trialed weighted knee ext today for increased ROM, d/c secondary to pain. Pain was a limiting factor this session. Physical Therapy Plan Frequency and Duration Frequency of Treatment 2x/Week Plan of Care Start Date 07/26/22 Plan of Care End Date 10/24/22 Therapeutic Interventions Therapeutic Interventions Home Exercise Program,Joint Mobilizations,Manual Therapy, Patient/Caregiver Education, Self-Care/Home Management,Soft Tissue Mobilization, Therapeutic Activities, Therapeutic Exercises Modalities Cold Pack/Ice Massage,Electric Stimulation,Hot Packs, Ultrasound Next Visit Focus/Plan Next Note Type Treatment Note Next Visit Plan Assess carryover of HEP (Quad sets, SLR) and home ice treatment. Progress exercises if pain has been reduced and gait training.
--- NOTE | 2022-08-12 13:15 | PT.OTN ---
Current Diagnoses Pain in left knee (08/12/22) Stiffness of left knee, not elsewhere classified (08/12/22) Muscle weakness (generalized) (08/12/22) Other abnormalities of gait and mobility (08/12/22) Presence of left artificial knee joint (08/12/22) Physical Therapy Treatment Note PT-OP-A Visit Information Start: 07/26/22 17:10 Freq: Status: Active Protocol: Document 08/12/22 11:36 NBM (Rec: 08/12/22 12:27 NBM [id number]) Out-Patient Physical Therapy Visit Information Visit Information Visit Type Treatment Note Visit Start Time 11:32 Visit Stop Time 12:21 Total Visit Minutes 49 Visit Number 4 Number of ROBOTIC WELDING OPERATOR Visits 2 Precautions Precautions [place]. PT-OP-B Current Condition Start: 07/26/22 17:10 Freq: Status: Active Protocol: Document 07/26/22 15:15 DCW (Rec: 07/26/22 17:34 DCW [id number]) Current Condition History of Current Condition Onset Date 07/06/22 Current Complaints L TKA History of Current Condition Pt is a 66 year old male presenting three weeks s/p L TKA. Pt notes that there was significant edema and pain since surgery, but it seems to have improved a lot over the past two days. Does admit that his knee still hurts all the time. Minimal activity since surgery. Admits he was given HEP, including SLR, SAQ, ankle pumps, and heels slides, but that he has not been doing any of them. Walks into PT today with a mild-moderate antalgic gait and no assistive device. Reports that he has crutches, but they're too short, and he still uses his FWW for longer distances, but not around the house or for short distances. Brother who is visiting from [place] has been staying with him for assistance since surgery. Pt very hard of hearing. Treatment Goals Patient/Caregiver Goals Improve walking ability, return to independent function PT-OP-C Subjective Start: 07/26/22 17:10 Freq: Status: Active Protocol: Document 08/12/22 11:36 NBM (Rec: 08/12/22 12:27 NBM [id number]) OP-PT Subjective Patient Comments Patient Comments Pt is asleep in waiting room and reports he's very tired today. He has not been sleeping well and pushing off sleep due to increased pain when not moving, and waking up frequently due to pain. Pt sees on Wednesday 08/16 and plans to discuss pain medications/sleep issues. Pt uses seated eliptical at home 4 min 3 times a day to loosen his knee up. PT-OP-E Functional Tests Start: 07/26/22 17:10 Freq: Status: Active Protocol: Document 07/26/22 15:15 DCW (Rec: 07/26/22 17:34 DCW [id number]) Functional Tests 2 Minute Walk Test Distance 238' Device Used None Comments 1.98 ft/sec Timed Up and Go (TUG) Score 17.18 Comments Three-trial average (18.11, 17 .15, 16.28) TUG Impairment Rating 60 to <80% Impaired (Score 16- 17) PT-OP-F Manual Assessment Start: 07/26/22 17:10 Freq: Status: Active Protocol: Document 07/26/22 15:15 DCW (Rec: 07/26/22 17:34 DCW [id number]) Manual Assessments Soft Tissue Assessment Soft Tissue Mobility Assessment Mild LE edema and joint effusion Joint Mobility Assessment Joint Mobility Assessment Slight laxity with anterior draw on left, nothing that exceeds expectations following TKA PT-OP-G Mobility & Gait Start: 07/26/22 17:10 Freq: Status: Active Protocol: Document 07/26/22 15:15 DCW (Rec: 07/26/22 17:34 DCW [id number]) OP Gait Assessment Gait Gait Assistance Required: Independent Distance (Feet) 238 Able to Maintain Weight Bearing Status Yes During Gait Assistive Devices Assistive Device None Orthotic/Prosthetic Devices or Brace: No Gait Deviations General Gait Pattern Antalgic Factors Limiting Gait Function Factors Limiting Gait Function Limited Range of Motion,Pain Comments Gait Comments Mild angalgia, able to improve quality of gait with verbal cues PT-OP-K Range of Motion Start: 07/26/22 17:10 Freq: Status: Active Protocol: Document 08/12/22 11:36 NBM (Rec: 08/22/22 09:24 NBM [id number]) Knee Goniometric Range of Motion Knee Left Patient Position Supine Flexion Active (degrees) 116 PT-OP-M Strength Start: 07/26/22 17:10 Freq: Status: Active Protocol: Document 07/26/22 15:15 DCW (Rec: 07/26/22 17:34 DCW [id number]) Knee Strength Knee Manual Muscle Testing Left Flexion (S2) 3+ Fair+ Extension (L3) 3 Fair Right Flexion (S2) 3+ Fair+ Extension (L3) 3 Fair PT-OP-Q Treatments Start: 07/26/22 17:10 Freq: Status: Active Protocol: Document 08/12/22 11:36 NBM (Rec: 08/12/22 12:27 [facility] [id number]) Cardio Equipment Bicycle (Upright) Duration (Minutes) 9 Resistance 6 Seat Position 8 Other full revolutions Therapeutic Exercises Supine Exercises Quad Sets Side left Reps/Minutes 2x10 Comments Pt with ext lag, provided cues for decreased extension. SLR Supine Exercise Name w/neuromuscular facilitation/ tapping to VMO Side left Reps/Minutes 2x10 Comments vc for controlled eccentric, quad set first Prone Exercises knee extension Prone Exercise Name knee hang - long duration, low load Side left Resistance 1# ankle weight Reps/Minutes 5 min Comments pillow under hips, shoe doffed , work towards more leg off plinth Sitting Exercises PROM Sitting Exercise Name self-knee flexion w/ RLE over LLE Side left Reps/Minutes 5 x 5SH Comments cues for LLE alignment Standing Exercises Gastroc Stretch Side left Reps/Minutes 2x30 Comments Feeling good Stretch, reports soreness. Lunge Stretch Side left Equipment Used counter support Reps/Minutes 3x30 Comments Some discomfort, less so than knee Ext. Self-Care/Home Management Treatment Education Patient Education Home Exercise Program Other Education Added to HEP: seated self- assisted knee flexion, supine HS stretch w/ strap, prone knee hang - HO given. PT-OP-R Modalities Start: 07/26/22 17:10 Freq: Status: Active Protocol: Document 08/12/22 11:36 NBM (Rec: 08/12/22 12:27 [facility] [id number]) Hot Pack/Cold Pack Treatment L knee Cold Pack Location L knee Patient Position Supine Treatment Duration (minutes) 6 Comments bolster under LE, ice pack anterior and posterior, posterior removed d/t pt c/o of HS discomfort. PT-OP-T Assessment and Plan Start: 07/26/22 17:10 Freq: Status: Active Protocol: Document 08/12/22 11:36 NBM (Rec: 08/12/22 12:27 [facility] [id number]) Physical Therapy Assessment Impairments Impairments Activity Tolerance,Edema, Functional Activities, Functional Mobility,Gait,Pain, ROM Goals Three Impairment Pt scores a 17.18 on the TUG, indicating an increased risk of falls. Manager Erp Goal (LTG) Pt to improve TUG score to at <12, in order to demonstrate decreased falls risk LTG Duration 10/24/22 Two Impairment Limited left knee AROM (17?- 106?) Halfway Goal (LTG) Pt to increase left knee active ROM to 0?-120? in order to return to normal functional mobility. LTG Duration 10/24/22 One Impairment Pt does not have an appropriate home exercise program Short Term Goal (STG) Pt to be independent and compliant with an appropriate HEP STG Duration 08/25/22 Assessment Summary Assessment Pt arrives w/ mid-thigh compression sleeve on L LE. He demonstrates notable bilateral Hamstring tightness. Tanner is able to perform full revolutions on upright exercise bike and his L knee flexion ROM has improved from 106 deg at initial eval to 116 deg today end of session. He tolerates low load, long duration ex of prone knee extension hang to improve knee extension ROM. Added to HEP: seated self-assisted knee flexion, supine HS stretch w/ strap, prone knee hang - HO given. Physical Therapy Plan Frequency and Duration Frequency of Treatment 2x/Week Plan of Care Start Date 07/26/22 Plan of Care End Date 10/24/22 Therapeutic Interventions Therapeutic Interventions Home Exercise Program,Joint Mobilizations,Manual Therapy, Patient/Caregiver Education, Self-Care/Home Management,Soft Tissue Mobilization, Therapeutic Activities, Therapeutic Exercises Modalities Cold Pack/Ice Massage,Electric Stimulation,Hot Packs, Ultrasound Next Visit Focus/Plan Next Note Type Treatment Note Next Visit Plan Assess carryover of HEP (Quad sets, SLR) and home ice treatment. Progress exercises if pain has been reduced and gait training.
--- NOTE | 2022-08-15 13:10 | PT.OTN ---
Current Diagnoses Pain in left knee (08/15/22) Stiffness of left knee, not elsewhere classified (08/15/22) Muscle weakness (generalized) (08/15/22) Other abnormalities of gait and mobility (08/15/22) Presence of left artificial knee joint (08/15/22) Physical Therapy Treatment Note PT-OP-A Visit Information Start: 07/26/22 17:10 Freq: Status: Active Protocol: Document 08/15/22 12:21 NBM (Rec: 08/15/22 18:05 NB [id number]) Out-Patient Physical Therapy Visit Information Visit Information Visit Type Treatment Note Visit Start Time 12:21 Visit Stop Time 13:01 Total Visit Minutes 40 Visit Number 5 Number of TABLE WORKER Visits 3 Evaluation Information Evaluation Date 07/26/22 Precautions Precautions VIEJAS. PT-OP-B Current Condition Start: 07/26/22 17:10 Freq: Status: Active Protocol: Document 07/26/22 15:15 DCW (Rec: 07/26/22 17:34 DCW [id number]) Current Condition History of Current Condition Onset Date 07/06/22 Current Complaints L TKA History of Current Condition Pt is a 66 year old male presenting three weeks s/p L TKA. Pt notes that there was significant edema and pain since surgery, but it seems to have improved a lot over the past two days. Does admit that his knee still hurts all the time. Minimal activity since surgery. Admits he was given HEP, including SLR, SAQ, ankle pumps, and heels slides, but that he has not been doing any of them. Walks into PT today with a mild-moderate antalgic gait and no assistive device. Reports that he has crutches, but they're too short, and he still uses his FWW for longer distances, but not around the house or for short distances. Brother who is visiting from [place] has been staying with him for assistance since surgery. Pt very hard of hearing. Treatment Goals Patient/Caregiver Goals Improve walking ability, return to independent function PT-OP-C Subjective Start: 07/26/22 17:10 Freq: Status: Active Protocol: Document 08/15/22 12:21 NBM (Rec: 08/15/22 18:05 NBM [id number]) OP-PT Subjective Patient Comments Patient Comments Pt arrives w/o compression sleeve today and w/ shoes doffed stating his L foot was hurting in them. He reports he forgot hearing aids again. Sleep has been better as he's been able to change sleeping positions. He reports since last visit he lies on stomach at night with leg straight hanging over edge of bed which feels good. He uses the ex bike at home 4 minutes forwards and backwards three times a day, and ices every day. He sees MD tomorrow. PT-OP-E Functional Tests Start: 07/26/22 17:10 Freq: Status: Active Protocol: Document 07/26/22 15:15 DCW (Rec: 07/26/22 17:34 DCW [id number]) Functional Tests 2 Minute Walk Test Distance 238' Device Used None Comments 1.98 ft/sec Timed Up and Go (TUG) Score 17.18 Comments Three-trial average (18.11, 17 .15, 16.28) TUG Impairment Rating 60 to <80% Impaired (Score 16- 17) PT-OP-F Manual Assessment Start: 07/26/22 17:10 Freq: Status: Active Protocol: Document 07/26/22 15:15 DCW (Rec: 07/26/22 17:34 DCW [id number]) Manual Assessments Soft Tissue Assessment Soft Tissue Mobility Assessment Mild LE edema and joint effusion Joint Mobility Assessment Joint Mobility Assessment Slight laxity with anterior draw on left, nothing that exceeds expectations following TKA PT-OP-G Mobility & Gait Start: 07/26/22 17:10 Freq: Status: Active Protocol: Document 07/26/22 15:15 DCW (Rec: 07/26/22 17:34 DCW [id number]) OP Gait Assessment Gait Gait Assistance Required: Independent Distance (Feet) 238 Able to Maintain Weight Bearing Status Yes During Gait Assistive Devices Assistive Device None Orthotic/Prosthetic Devices or Brace: No Gait Deviations General Gait Pattern Antalgic Factors Limiting Gait Function Factors Limiting Gait Function Limited Range of Motion,Pain Comments Gait Comments Mild angalgia, able to improve quality of gait with verbal cues PT-OP-K Range of Motion Start: 07/26/22 17:10 Freq: Status: Active Protocol: Document 08/15/22 12:21 NBM (Rec: 09/26/22 10:31 NBM [id number]) Knee Goniometric Range of Motion Knee Left Patient Position Supine Flexion Active (degrees) 121 Flexion Passive (degrees) 124 PT-OP-M Strength Start: 07/26/22 17:10 Freq: Status: Active Protocol: Document 07/26/22 15:15 DCW (Rec: 07/26/22 17:34 DCW [id number]) Knee Strength Knee Manual Muscle Testing Left Flexion (S2) 3+ Fair+ Extension (L3) 3 Fair Right Flexion (S2) 3+ Fair+ Extension (L3) 3 Fair PT-OP-Q Treatments Start: 07/26/22 17:10 Freq: Status: Active Protocol: Document 08/15/22 12:21 NBM (Rec: 08/15/22 18:05 NBM [id number]) Gym Equipment Shuttle Recovery Unilateral Squats Resistance 37# Shuttle Recovery Platform Stable Reps/Time 2x10 ea Bilateral Squats Details cues for LE alignment Resistance 75# Shuttle Recovery Platform Stable Reps/Time 2x10 Therapeutic Exercises Supine Exercises heel slides Side left Reps/Minutes x10 Knee Flex Supine Exercise Name Knee flex stretch Side left Resistance AROM Reps/Minutes 3 x 15 sec hold HS Stretch Side left Equipment Used w/ strap Reps/Minutes 2x30 Comments max cues for straight knee before hip flex Quad Sets Side left Equipment Used blue round bolster under L knee Reps/Minutes 2x10 Comments Pt with ext lag, provided cues for decreased extension. SLR Supine Exercise Name w/neuromuscular facilitation/ tapping to VMO Side left Reps/Minutes 2x10 Comments vc for controlled eccentric, quad set first, excessive hip IR Standing Exercises TKE Standing Exercise Name Terminal Knee Extension Side left Resistance Green Tb Reps/Minutes 2-3SH x10 Comments cues for form Gastroc Stretch Side left Equipment Used Estiven Reps/Minutes 2x30 Comments Feeling good Stretch, reports soreness. Manual Therapy Treatment Soft Tissue Mobilization Scar mobilization Body Location L Knee Mobilization Type Other Intensity/Depth Superficial Body Position Supine Comments Gentle scar mobilization to assist with scar formation, laying of the fibers, and decrease adhesion. Light edema massage. Joint Mobilizations patellar Joint L Direction sup/inf, med/lat Grade II Body Position Supine Comments L knee on round bolster Manual Techniques Hamstring stretch Type w/ conract/relax Body Location L HS Body Position Hooklying Reps/Duration 2 x 10s contraction Comments Pt has weakened L HS contraction partway through 2nd 10s set - increased L HS ROM post. Self-Care/Home Management Treatment Education Patient Education Home Exercise Program,Joint Protection,Pain Management Other Education Provided education on self- scar tissue massage. PT-OP-R Modalities Start: 07/26/22 17:10 Freq: Status: Active Protocol: Document 08/15/22 12:21 NBM (Rec: 08/15/22 18:05 [facility] [id number]) Hot Pack/Cold Pack Treatment L knee Cold Pack Location L knee Patient Position Supine Treatment Duration (minutes) 5 Comments bolster under LE, ice pack anterior. PT-OP-T Assessment and Plan Start: 07/26/22 17:10 Freq: Status: Active Protocol: Document 08/15/22 12:21 NBM (Rec: 08/15/22 18:05 [facility] [id number]) Physical Therapy Assessment Impairments Impairments Activity Tolerance,Edema, Functional Activities, Functional Mobility,Gait,Pain, ROM Goals Three Impairment Pt scores a 17.18 on the TUG, indicating an increased risk of falls. Jail Goal (LTG) Pt to improve TUG score to at <12, in order to demonstrate decreased falls risk LTG Duration 10/24/22 Two Impairment Limited left knee AROM (17?- 106?) Jail Goal (LTG) Pt to increase left knee active ROM to 0?-120? in order to return to normal functional mobility. 08/15/22: L knee flex AROM 121 deg, 124 deg w/ overpressure. LTG Duration 10/24/22 One Impairment Pt does not have an appropriate home exercise program Short Term Goal (STG) Pt to be independent and compliant with an appropriate HEP 08/12/22: Added to HEP: seated self-assist knee flexion stretch, supine HS stretch w/ strap, prone knee hang - HO given. STG Duration 08/25/22 Assessment Summary Assessment Pt arrives w/o compression sleeve today and w/ shoes doffed stating his L foot was hurting in them. Treatment focus on improving L knee ROM and stretching. Pt requires max cues for performing supine HS stretch with straight knee . He demonstrates reduced extension lag with SLR ex with cueing and neuromuscular fascilitation to L VMO. End of session ROM: L knee flex AROM 121 deg and PROM 124 deg meeting flexion ROM Short Term Goal. Physical Therapy Plan Frequency and Duration Frequency of Treatment 2x/Week Plan of Care Start Date 07/26/22 Plan of Care End Date 10/24/22 Therapeutic Interventions Therapeutic Interventions Home Exercise Program,Joint Mobilizations,Manual Therapy, Patient/Caregiver Education, Self-Care/Home Management,Soft Tissue Mobilization, Therapeutic Activities, Therapeutic Exercises Modalities Cold Pack/Ice Massage,Electric Stimulation,Hot Packs, Ultrasound Next Visit Focus/Plan Next Note Type Treatment Note Next Visit Plan Assess carryover of HEP (Quad sets, SLR) and home ice treatment. Review HEP. Progress exercises if pain has been reduced and gait training.
--- NOTE | 2022-08-17 16:48 | PT.OTN ---
Current Diagnoses Pain in left knee (08/17/22) Stiffness of left knee, not elsewhere classified (08/17/22) Muscle weakness (generalized) (08/17/22) Other abnormalities of gait and mobility (08/17/22) Presence of left artificial knee joint (08/17/22) Physical Therapy Treatment Note PT-OP-A Visit Information Start: 07/26/22 17:10 Freq: Status: Active Protocol: Document 08/17/22 12:51 SW (Rec: 08/17/22 13:45 SW [id number]) Out-Patient Physical Therapy Visit Information Visit Information Visit Type Treatment Note Visit Start Time 12:58 Visit Stop Time 13:41 Total Visit Minutes 43 Visit Number 6 Number of TRAVEL REGISTERED NURSE NICU Visits 4 PT-OP-B Current Condition Start: 07/26/22 17:10 Freq: Status: Active Protocol: Document 07/26/22 15:15 DCW (Rec: 07/26/22 17:34 DCW [id number]) Current Condition History of Current Condition Onset Date 07/06/22 Current Complaints L TKA History of Current Condition Pt is a 66 year old male presenting three weeks s/p L TKA. Pt notes that there was significant edema and pain since surgery, but it seems to have improved a lot over the past two days. Does admit that his knee still hurts all the time. Minimal activity since surgery. Admits he was given HEP, including SLR, SAQ, ankle pumps, and heels slides, but that he has not been doing any of them. Walks into PT today with a mild-moderate antalgic gait and no assistive device. Reports that he has crutches, but they're too short, and he still uses his FWW for longer distances, but not around the house or for short distances. Brother who is visiting from [place] has been staying with him for assistance since surgery. Pt very hard of hearing. Treatment Goals Patient/Caregiver Goals Improve walking ability, return to independent function PT-OP-C Subjective Start: 07/26/22 17:10 Freq: Status: Active Protocol: Document 08/17/22 12:51 SW (Rec: 08/17/22 13:45 SW [id number]) OP-PT Subjective Patient Comments Patient Comments Pt reports he had a follow up with the orthopaedic surgeon since last visit, and he said that everything was looking good. PT-OP-E Functional Tests Start: 07/26/22 17:10 Freq: Status: Active Protocol: Document 07/26/22 15:15 DCW (Rec: 07/26/22 17:34 DCW [id number]) Functional Tests 2 Minute Walk Test Distance 238' Device Used None Comments 1.98 ft/sec Timed Up and Go (TUG) Score 17.18 Comments Three-trial average (18.11, 17 .15, 16.28) TUG Impairment Rating 60 to <80% Impaired (Score 16- 17) PT-OP-F Manual Assessment Start: 07/26/22 17:10 Freq: Status: Active Protocol: Document 07/26/22 15:15 DCW (Rec: 07/26/22 17:34 DCW [id number]) Manual Assessments Soft Tissue Assessment Soft Tissue Mobility Assessment Mild LE edema and joint effusion Joint Mobility Assessment Joint Mobility Assessment Slight laxity with anterior draw on left, nothing that exceeds expectations following TKA PT-OP-G Mobility & Gait Start: 07/26/22 17:10 Freq: Status: Active Protocol: Document 07/26/22 15:15 DCW (Rec: 07/26/22 17:34 DCW [id number]) OP Gait Assessment Gait Gait Assistance Required: Independent Distance (Feet) 238 Able to Maintain Weight Bearing Status Yes During Gait Assistive Devices Assistive Device None Orthotic/Prosthetic Devices or Brace: No Gait Deviations General Gait Pattern Antalgic Factors Limiting Gait Function Factors Limiting Gait Function Limited Range of Motion,Pain Comments Gait Comments Mild angalgia, able to improve quality of gait with verbal cues PT-OP-K Range of Motion Start: 07/26/22 17:10 Freq: Status: Active Protocol: Document 07/26/22 15:15 DCW (Rec: 07/26/22 17:34 DCW [id number]) Knee Goniometric Range of Motion Knee Left Knee ROM WFL No Patient Position Sitting Flexion Active (degrees) 106 Flexion Passive (degrees) 106 Extension Active (degrees) 17 Extension Passive (degrees) 9 Right Knee ROM WFL No Patient Position Sitting Flexion Active (degrees) 106 Flexion Passive (degrees) 106 Extension Active (degrees) 17 Extension Passive (degrees) 9 PT-OP-M Strength Start: 07/26/22 17:10 Freq: Status: Active Protocol: Document 07/26/22 15:15 DCW (Rec: 07/26/22 17:34 DCW [id number]) Knee Strength Knee Manual Muscle Testing Left Flexion (S2) 3+ Fair+ Extension (L3) 3 Fair Right Flexion (S2) 3+ Fair+ Extension (L3) 3 Fair PT-OP-Q Treatments Start: 07/26/22 17:10 Freq: Status: Active Protocol: Document 08/17/22 12:51 SW (Rec: 08/17/22 13:45 SW [id number]) Cardio Equipment Bicycle (Upright) Duration (Minutes) 9 Resistance 7 Seat Position 8 Other Full revolutions Therapeutic Exercises Supine Exercises heel slides Side left Reps/Minutes 2 x10 Comments emphasizing end ROM Knee Flex Supine Exercise Name Knee flex stretch Side left Resistance AROM> Reps/Minutes 3 x 15 sec hold Knee Ext Supine Exercise Name Knee ext stretch w/bolster under heel Side left Equipment Used gravity assist>2 lb weight Reps/Minutes x6 min Quad Sets Side left Equipment Used blue round bolster under L knee Reps/Minutes 2x10 Comments Pt with ext lag, provided cues for decreased extension. SLR Supine Exercise Name w/neuromuscular facilitation/ tapping to VMO Side left Reps/Minutes 2x10 Comments vc for controlled eccentric, quad set first, excessive hip IR Standing Exercises Gastroc Stretch Side left Equipment Used Estiven Reps/Minutes 2x30 Comments Feeling good Stretch, reports soreness. PT-OP-R Modalities Start: 07/26/22 17:10 Freq: Status: Active Protocol: Document 08/17/22 12:51 SW (Rec: 08/17/22 16:48 SW [id number]) Hot Pack/Cold Pack Treatment L knee Cold Pack Location L knee Patient Position Supine Treatment Duration (minutes) 5 Comments bolster under LE, ice pack in pillowcase anterior PT-OP-T Assessment and Plan Start: 07/26/22 17:10 Freq: Status: Active Protocol: Document 08/17/22 12:51 SW (Rec: 08/17/22 13:45 SW [id number]) Physical Therapy Assessment Goals Three Impairment Pt scores a 17.18 on the TUG, indicating an increased risk of falls. Intermediate Goal (LTG) Pt to improve TUG score to at <12, in order to demonstrate decreased falls risk LTG Duration 10/24/22 Two Impairment Limited right knee AROM (17?- 106?) Earth Moving Machine Operator Goal (LTG) Pt to increase right knee active ROM to 0?-120? in order to return to normal functional mobility. LTG Duration 10/24/22 One Impairment Pt does not have an appropriate home exercise program Short Term Goal (STG) Pt to be independent and compliant with an appropriate HEP STG Duration 08/25/22 Assessment Summary Assessment Patient lacking 10 degrees of ext prior to stretching exercises, post lacking 8 degrees of ext. Pt present w/o shoes this session d/t discomfort with edema in L foot. Increased tolerance to stretching exercises this session, recommend manual for edema next session if swelling has not improved in LLE. Discussed stretching exercises for ROM and edema management at home. Physical Therapy Plan Frequency and Duration Frequency of Treatment 2x/Week Plan of Care Start Date 07/26/22 Plan of Care End Date 10/24/22 Therapeutic Interventions Therapeutic Interventions Home Exercise Program,Joint Mobilizations,Manual Therapy, Patient/Caregiver Education, Self-Care/Home Management,Soft Tissue Mobilization, Therapeutic Activities, Therapeutic Exercises Modalities Cold Pack/Ice Massage,Electric Stimulation,Hot Packs, Ultrasound Next Visit Focus/Plan Next Note Type Treatment Note Next Visit Plan Progress exercises if pain has been reduced and gait training.
--- NOTE | 2022-08-23 15:00 | PT.OTN ---
Current Diagnoses Pain in left knee (08/23/22) Stiffness of left knee, not elsewhere classified (08/23/22) Muscle weakness (generalized) (08/23/22) Other abnormalities of gait and mobility (08/23/22) Presence of left artificial knee joint (08/23/22) Physical Therapy Treatment Note PT-OP-A Visit Information Start: 07/26/22 17:10 Freq: Status: Active Protocol: Document 08/23/22 14:15 DCW (Rec: 08/23/22 15:00 DCW [id number]) Out-Patient Physical Therapy Visit Information Visit Information Visit Type Treatment Note Visit Start Time 14:15 Visit Stop Time 15:30 Total Visit Minutes 45 Visit Number 7 Number of AVIATION SAFETY TECHNICIAN Visits 0 Evaluation Information Evaluation Date 07/26/22 Precautions Precautions PAMUNKEY. PT-OP-B Current Condition Start: 07/26/22 17:10 Freq: Status: Active Protocol: Document 07/26/22 15:15 DCW (Rec: 07/26/22 17:34 DCW [id number]) Current Condition History of Current Condition Onset Date 07/06/22 Current Complaints L TKA History of Current Condition Pt is a 66 year old male presenting three weeks s/p L TKA. Pt notes that there was significant edema and pain since surgery, but it seems to have improved a lot over the past two days. Does admit that his knee still hurts all the time. Minimal activity since surgery. Admits he was given HEP, including SLR, SAQ, ankle pumps, and heels slides, but that he has not been doing any of them. Walks into PT today with a mild-moderate antalgic gait and no assistive device. Reports that he has crutches, but they're too short, and he still uses his FWW for longer distances, but not around the house or for short distances. Brother who is visiting from [place] has been staying with him for assistance since surgery. Pt very hard of hearing. Treatment Goals Patient/Caregiver Goals Improve walking ability, return to independent function PT-OP-C Subjective Start: 07/26/22 17:10 Freq: Status: Active Protocol: Document 08/23/22 14:15 DCW (Rec: 08/23/22 15:00 DCW [id number]) OP-PT Subjective Patient Comments Patient Comments Doing well, could be better. Admits he is still struggling with deep joint pain all the time. PT-OP-E Functional Tests Start: 07/26/22 17:10 Freq: Status: Active Protocol: Document 07/26/22 15:15 DCW (Rec: 07/26/22 17:34 DCW [id number]) Functional Tests 2 Minute Walk Test Distance 238' Device Used None Comments 1.98 ft/sec Timed Up and Go (TUG) Score 17.18 Comments Three-trial average (18.11, 17 .15, 16.28) TUG Impairment Rating 60 to <80% Impaired (Score 16- 17) PT-OP-F Manual Assessment Start: 07/26/22 17:10 Freq: Status: Active Protocol: Document 07/26/22 15:15 DCW (Rec: 07/26/22 17:34 DCW [id number]) Manual Assessments Soft Tissue Assessment Soft Tissue Mobility Assessment Mild LE edema and joint effusion Joint Mobility Assessment Joint Mobility Assessment Slight laxity with anterior draw on left, nothing that exceeds expectations following TKA PT-OP-G Mobility & Gait Start: 07/26/22 17:10 Freq: Status: Active Protocol: Document 07/26/22 15:15 DCW (Rec: 07/26/22 17:34 DCW [id number]) OP Gait Assessment Gait Gait Assistance Required: Independent Distance (Feet) 238 Able to Maintain Weight Bearing Status Yes During Gait Assistive Devices Assistive Device None Orthotic/Prosthetic Devices or Brace: No Gait Deviations General Gait Pattern Antalgic Factors Limiting Gait Function Factors Limiting Gait Function Limited Range of Motion,Pain Comments Gait Comments Mild angalgia, able to improve quality of gait with verbal cues PT-OP-K Range of Motion Start: 07/26/22 17:10 Freq: Status: Active Protocol: Document 08/12/22 11:36 NBM (Rec: 08/22/22 09:24 NBM [id number]) Knee Goniometric Range of Motion Knee Left Patient Position Supine Flexion Active (degrees) 116 PT-OP-M Strength Start: 07/26/22 17:10 Freq: Status: Active Protocol: Document 07/26/22 15:15 DCW (Rec: 07/26/22 17:34 DCW [id number]) Knee Strength Knee Manual Muscle Testing Left Flexion (S2) 3+ Fair+ Extension (L3) 3 Fair Right Flexion (S2) 3+ Fair+ Extension (L3) 3 Fair PT-OP-Q Treatments Start: 07/26/22 17:10 Freq: Status: Active Protocol: Document 08/23/22 14:15 DCW (Rec: 08/23/22 15:00 DCW [id number]) Cardio Equipment Bicycle (Upright) Duration (Minutes) 6 Resistance 7 Seat Position 7 Other Full revolutions Gym Equipment Shuttle Recovery Unilateral Squats Resistance 50# Shuttle Recovery Platform Stable Reps/Time 2x10 ea Bilateral Squats Details cues for LE alignment Resistance 87# Shuttle Recovery Platform Stable Reps/Time 2x10 Therapeutic Exercises Supine Exercises SLR Supine Exercise Name w/neuromuscular facilitation/ tapping to VMO Side left Reps/Minutes 2x10 Comments vc for controlled eccentric, quad set first, excessive hip IR Standing Exercises TKE Standing Exercise Name Terminal Knee Extension Side left Resistance Green Tb Reps/Minutes 2-3SH x10 Comments cues for form Gastroc Stretch Side left Equipment Used Estiven Reps/Minutes 2x30 Comments Feeling good stretch Lunge Stretch Side left Equipment Used counter support Reps/Minutes 3x30 Comments Some discomfort, less so than knee Ext. Manual Therapy Treatment Joint Mobilizations patellar Joint L Direction sup/inf, med/lat Grade II Body Position Supine Comments L knee on round bolster PT-OP-R Modalities Start: 07/26/22 17:10 Freq: Status: Active Protocol: Document 08/17/22 12:51 SW (Rec: 08/17/22 16:48 SW [id number]) Hot Pack/Cold Pack Treatment L knee Cold Pack Location L knee Patient Position Supine Treatment Duration (minutes) 5 Comments bolster under LE, ice pack in pillowcase anterior PT-OP-T Assessment and Plan Start: 07/26/22 17:10 Freq: Status: Active Protocol: Document 08/23/22 14:15 DCW (Rec: 08/23/22 15:00 DCW [id number]) Physical Therapy Assessment Goals Three Impairment Pt scores a 17.18 on the TUG, indicating an increased risk of falls. Studio Sales Associate Goal (LTG) Pt to improve TUG score to at <12, in order to demonstrate decreased falls risk LTG Duration 10/24/22 Two Impairment Limited right knee AROM (17?- 106?) Long-Term Goal (LTG) Pt to increase right knee active ROM to 0?-120? in order to return to normal functional mobility. LTG Duration 10/24/22 One Impairment Pt does not have an appropriate home exercise program Short Term Goal (STG) Pt to be independent and compliant with an appropriate HEP STG Duration 08/25/22 Assessment Summary Assessment Left knee AROM measured 4?-123 ? today. Edema appears to be better managed today, but able to wear normal footwear. Pt continues to report concern that his knee is clicking during ambulation, informed him that it is quite normal following TKA. Physical Therapy Plan Frequency and Duration Frequency of Treatment 2x/Week Plan of Care Start Date 07/26/22 Plan of Care End Date 10/24/22 Therapeutic Interventions Therapeutic Interventions Home Exercise Program,Joint Mobilizations,Manual Therapy, Patient/Caregiver Education, Self-Care/Home Management,Soft Tissue Mobilization, Therapeutic Activities, Therapeutic Exercises Modalities Cold Pack/Ice Massage,Electric Stimulation,Hot Packs, Ultrasound Next Visit Focus/Plan Next Note Type Treatment Note Next Visit Plan Progress exercises if pain has been reduced and gait training.
--- NOTE | 2022-12-13 11:29 | PT.OPDS ---
Current Diagnoses Pain in left knee (08/23/22) Stiffness of left knee, not elsewhere classified (08/23/22) Muscle weakness (generalized) (08/23/22) Other abnormalities of gait and mobility (08/23/22) Presence of left artificial knee joint (08/23/22) Visit Care Team Role Provider Type Kayden Kelsey MD Family Provider Physician Primary Care Provider Specialty: Family Practice Address: [address] [place] [address], [id number] Email: [email or web address] Reinaldo Miranda PA-C Attending Provider Non-Staff Referring Provider Specialty: Medical Address: [facility], [address] [place] [address], [phone] Email: Visit Number Visit Number 7 Discharge Summary PT-OP-B Current Condition Start: 07/26/22 17:10 Freq: Status: Active Protocol: Document 07/26/22 15:15 DCW (Rec: 07/26/22 17:34 DCW [id number]) Current Condition History of Current Condition Onset Date 07/06/22 Current Complaints L TKA History of Current Condition Pt is a 66 year old male presenting three weeks s/p L TKA. Pt notes that there was significant edema and pain since surgery, but it seems to have improved a lot over the past two days. Does admit that his knee still hurts all the time. Minimal activity since surgery. Admits he was given HEP, including SLR, SAQ, ankle pumps, and heels slides, but that he has not been doing any of them. Walks into PT today with a mild-moderate antalgic gait and no assistive device. Reports that he has crutches, but they're too short, and he still uses his FWW for longer distances, but not around the house or for short distances. Brother who is visiting from [place] has been staying with him for assistance since surgery. Pt very hard of hearing. Treatment Goals Patient/Caregiver Goals Improve walking ability, return to independent function PT-OP-C Subjective Start: 07/26/22 17:10 Freq: Status: Active Protocol: Document 08/23/22 14:15 DCW (Rec: 08/23/22 15:00 DCW [id number]) OP-PT Subjective Patient Comments Patient Comments Doing well, could be better. Admits he is still struggling with deep joint pain all the time. PT-OP-E Functional Tests Start: 07/26/22 17:10 Freq: Status: Active Protocol: Document 07/26/22 15:15 DCW (Rec: 07/26/22 17:34 DCW [id number]) Functional Tests 2 Minute Walk Test Distance 238' Device Used None Comments 1.98 ft/sec Timed Up and Go (TUG) Score 17.18 Comments Three-trial average (18.11, 17 .15, 16.28) TUG Impairment Rating 60 to <80% Impaired (Score 16- 17) PT-OP-F Manual Assessment Start: 07/26/22 17:10 Freq: Status: Active Protocol: Document 07/26/22 15:15 DCW (Rec: 07/26/22 17:34 DCW [id number]) Manual Assessments Soft Tissue Assessment Soft Tissue Mobility Assessment Mild LE edema and joint effusion Joint Mobility Assessment Joint Mobility Assessment Slight laxity with anterior draw on left, nothing that exceeds expectations following TKA PT-OP-G Mobility & Gait Start: 07/26/22 17:10 Freq: Status: Active Protocol: Document 07/26/22 15:15 DCW (Rec: 07/26/22 17:34 DCW [id number]) OP Gait Assessment Gait Gait Assistance Required: Independent Distance (Feet) 238 Able to Maintain Weight Bearing Status Yes During Gait Assistive Devices Assistive Device None Orthotic/Prosthetic Devices or Brace: No Gait Deviations General Gait Pattern Antalgic Factors Limiting Gait Function Factors Limiting Gait Function Limited Range of Motion,Pain Comments Gait Comments Mild angalgia, able to improve quality of gait with verbal cues PT-OP-K Range of Motion Start: 07/26/22 17:10 Freq: Status: Active Protocol: Document 08/15/22 12:21 NBM (Rec: 09/26/22 10:31 NBM [id number]) Knee Goniometric Range of Motion Knee Left Patient Position Supine Flexion Active (degrees) 121 Flexion Passive (degrees) 124 PT-OP-M Strength Start: 07/26/22 17:10 Freq: Status: Active Protocol: Document 07/26/22 15:15 DCW (Rec: 07/26/22 17:34 DC [id number]) Knee Strength Knee Manual Muscle Testing Left Flexion (S2) 3+ Fair+ Extension (L3) 3 Fair Right Flexion (S2) 3+ Fair+ Extension (L3) 3 Fair PT-OP-T Assessment and Plan Start: 07/26/22 17:10 Freq: Status: Active Protocol: Document 12/13/22 11:28 DC (Rec: 12/13/22 11:29 [facility] [id number]) Physical Therapy Assessment Goals Three Impairment Pt scores a 17.18 on the TUG, indicating an increased risk of falls. Senior Care Goal (LTG) Pt to improve TUG score to at <12, in order to demonstrate decreased falls risk LTG Duration 10/24/22 Two Impairment Limited right knee AROM (17?- 106?) Well Tender Goal (LTG) Pt to increase right knee active ROM to 0?-120? in order to return to normal functional mobility. LTG Duration 10/24/22 One Impairment Pt does not have an appropriate home exercise program Short Term Goal (STG) Pt to be independent and compliant with an appropriate HEP STG Duration 08/25/22 Assessment Summary Assessment Pt canceled last scheduled visit, has now not been seen in more than three months. Pt will ne discharged from skilled therapy at this time. Physical Therapy Plan Frequency and Duration Frequency of Treatment 2x/Week Plan of Care Start Date 07/26/22 Plan of Care End Date 10/24/22 Discharge Physical Therapy Discharge Reasons No Longer Attending PT Next Visit Focus/Plan Next Note Type Discharge Summary
== END 2022-12-16 13:31 | disposition home or self-care (01) ==
LOC: PHYS 14:15
PROVIDERS: Family Provider Family Medicine; PCP Family Medicine; Referring Provider Physician Assistant Surgical; Visit Provider Physician Assistant Surgical
DX: Z96.652 Presence of left artificial knee joint (principal); M62.81 Muscle weakness (generalized); R26.89 Other abnormalities of gait and mobility; M25.562 Pain in left knee; M25.662 Stiffness of left knee, not elsewhere classified
CPT/HCPCS: 97110; 97140; 97161; 97535

== ENCOUNTER → 2022-10-13 16:25 | Outpatient (CLI) | payer MEDICARE, SELFPAY ==
[2022-10-13 18:10] LABS: Appearance Urine UA CLEAR; Bilirubin Urine UA NEGATIVE (NEGATIVE); Color Urine UA YELLOW; Glucose Urine UA NEGATIVE (Negative); Ketones Urine UA NEGATIVE (NEGATIVE); Leukocyte Esterase Urine UA NEGATIVE (NEGATIVE); Nitrite Urine UA NEGATIVE (Negative); Occult Blood Urine UA NEGATIVE (Negative); Protein Urine UA NEGATIVE (Negative); Specific Gravity Urine UA >=1.030 (1.000-1.035); pH Urine UA 5.5 (4.5-8.0)
[2022-10-13 18:27] LABS: Amorphous Sediment Urine 2+; Bacteria Urine None Seen; Culture Indicated Urine Cult Not Indicated; RBC Urine None Seen (0-5/HPF); Squamous Epithelial Cell Urine None Seen (0-5/HPF); WBC Urine None Seen (0-5/HPF)
[2022-10-15 08:39] LABS: Labcorp Hemoglobin (Hb) A1c 6.3 % (4.8-5.6)
== END ==
PROVIDERS: Family Provider Family Medicine; PCP Family Medicine; Referring Provider Family Medicine; Visit Provider Family Medicine
DX: E11.9 Type 2 diabetes mellitus without complications (principal); R82.90 Unspecified abnormal findings in urine
CPT/HCPCS: 81001; 83036

== ENCOUNTER → 2023-07-03 09:30 | Outpatient (CLI) | payer MEDICARE, SELFPAY ==
[2023-07-03 10:26] LABS: Hemoglobin A1C% w Est Avg Glu 6.2 % (4.0-6.0)
[2023-07-03 11:08] LABS: Alanine Aminotransferase 34 IU/L (<50); Albumin 4.2 g/dL (3.5-5.0); Albumin Globulin Ratio 1.4 (1.0-2.8); Alkaline Phosphatase 101 U/L (38-126); Aspartate Aminotransferase 29 IU/L (17-59); Bilirubin Total 0.7 mg/dL (0.2-1.3); Blood Urea Nitrogen 16 mg/dL (9-20); Calcium 9.7 mg/dL (8.4-10.2); Carbon Dioxide 26 mmol/L (22-32); Chloride 105 mmol/L (98-107); Estimated Glomerular Filt Rate > 60 mL/min (>60); Globulin 2.9 g/dL (1.7-4.1); Glucose 139 mg/dL (80-110); HEMOLYSIS < 15 (0-50); Potassium 4.5 mmol/L (3.4-5.1); Sodium 136 mmol/L (137-145); Total Protein 7.1 g/dL (6.3-8.2)
[2023-07-03 11:31] LABS: Prostate Specific Antigen Scrn 1.31 ng/mL (0.1-4.0)
== END ==
PROVIDERS: Family Provider Family Medicine; PCP Family Medicine; Referring Provider Physician Assistant; Visit Provider Physician Assistant
DX: E11.9 Type 2 diabetes mellitus without complications (principal); Z12.5 Encounter for screening for malignant neoplasm of prostate; I10 Essential (primary) hypertension
CPT/HCPCS: 36415; 80053; 83036; G0103

== ENCOUNTER → 2023-09-18 10:57 | Outpatient (CLI) | payer MEDICARE, SELFPAY ==
--- NOTE | 2023-09-18 10:59 | DI.MRI.S_ITS ---
PROCEDURE: MR STROKE Pre- and post-contrast brain MRI, non-contrast brain MR angiogram, pre- and postcontrast neck MR angiogram INDICATIONS: new headaches, short term memory loss, elevated HTN TECHNIQUE: Brain: Noncontrast axial T1 spin echo, axial T2 fast spin echo, sagittal and axial FLAIR, coronal T2 fast spin echo, axial gradient echo, axial diffusion and ADC through the brain. After the administration of contrast, axial 3D VIBE of the cranial vasculature and brain. Brain MRA: Non-contrast 3-D time of flight MR angiogram, with multiple jmupstd-vqtdyqwsh-vlgutwajze (MIP) reformats performed. Neck MRA: Axial and sagittal TruFISP through the neck. Coronal dynamic MR angiogram during administration of contrast in the arterial and venous phases, with 3-dimenstional cemuvrp-bahpmqkzy-uhjfmnuyor (MIP) reformats constructed from subtraction images. COMPARISON: None. FINDINGS: Image quality: Excellent. BRAIN: CSF spaces: Ventricles are normal in size and shape. Basal cisterns are patent. No extra-axial fluid collections. Brain: No intracranial bleeds or mass effects. [place]-white matter interface is normal. Diffusion weighted images show no acute infarct. Brainstem appears normal. Normal intravascular flow voids are present. No abnormal intracranial enhancement. Skull and face: Calvarial marrow signal is normal. Orbits appear normal. Sinuses: Paranasal sinus mucosal thickening. Complete opacification of the left frontal sinus. mastoids are clear. BRAIN MR ANGIOGRAM: Anterior circulation: Intracranial internal carotid arteries are normal in size and enhancement. The flow within the paired anterior cerebral arteries is normal and symmetric. The flow within the middle cerebral arteries is normal and symmetric. The anterior communicating artery is seen. No stenoses, occlusions, or aneurysms. Posterior circulation: The visualized portions of the vertebral arteries demonstrate normal caliber, and join to form a normal appearing basilar artery. origin of the right FURNACE MAINTENANCE The flow within the posterior cerebral arteries is normal and symmetric. No stenoses, occlusions, or aneurysms. NECK MR ANGIOGRAM: Carotids: Great vessels demonstrate a conventional anatomy as they arise from the aortic arch. The origins of the common carotid arteries appear patent. The calibers and courses of both common carotid arteries are normal. The bifurcation regions appear normal bilaterally. The internal carotid arteries demonstrate normal course and caliber. Posterior circulation: The origins of the vertebral arteries appear patent. More superior portions of both vertebral arteries demonstrate normal course and caliber, and join to form a normal appearing basilar artery. Miscellaneous: Subclavian arteries appear patent. Pre-contrast images through the neck show no soft tissue abnormalities. IMPRESSION: BRAIN MRI: No acute infarct. No acute intracranial abnormalities. Age-appropriate global volume loss and mild chronic microvascular ischemic changes. BRAIN MR ANGIOGRAM: No significant arterial abnormalities. NECK MR ANGIOGRAM: No significant arterial abnormalities. Dictated by: Chaitanya Mortensen M.D. on 09/18/2023 at 12:39 Approved by: Chaitanya Mortensen M.D. on 09/18/2023 at 12:46
== END ==
PROVIDERS: Family Provider Family Medicine; PCP Family Medicine; Referring Provider Family Medicine; Visit Provider Family Medicine
DX: E11.9 Type 2 diabetes mellitus without complications (principal); I10 Essential (primary) hypertension; R51.9 Headache, unspecified; G89.29 Other chronic pain; R41.3 Other amnesia
CPT/HCPCS: 70544; 70549; 70553; A9579

== ENCOUNTER → 2023-09-29 11:12 | Outpatient (CLI) | payer MEDICARE, SELFPAY ==
[2023-09-29 11:57] LABS: Add Manual Diff / Slide Review NO; Basophils Absolute Auto 0 /uL (0-100); Basophils Percent Auto 0.4 % (0-2); Eosinophils Absolute Auto 600 /uL (0-450); Eosinophils Percent Auto 9.4 % (2-4); Hematocrit 42.7 % (41-53); Hemoglobin 14.9 g/dL (13.5-17.5); Lymphocytes Absolute Auto 1100 /uL (1100-4500); Lymphocytes Percent Auto 16.6 % (25-40); Mean Corpuscular HGB Conc 34.9 % (30-36); Mean Corpuscular Hemoglobin 31.6 PG (26-34); Mean Corpuscular Volume 90.7 fL (80-100); Monocytes Absolute Auto 600 /uL (0-900); Monocytes Percent Auto 9.4 % (3-14); Neutrophils Absolute Auto 4300 /uL (1500-7000); Neutrophils Percent Auto 64.2 % (50-75); Platelet Count 190 X10^3/uL (150-400); Red Blood Cell Count 4.71 X10^6/uL (4.5-5.9); Red Cell Distribution Width 12.2 % (11.6-14.8); White Blood Cell Count 6.7 X10^3/uL (4.5-11.0)
[2023-09-29 12:33] LABS: Alanine Aminotransferase 30 IU/L (<50); Albumin 4.1 g/dL (3.5-5.0); Albumin Globulin Ratio 1.5 (1.0-2.8); Alkaline Phosphatase 89 U/L (38-126); Aspartate Aminotransferase 30 IU/L (17-59); BUN Creatinine Ratio 17.4 (6-22); Bilirubin Total 0.8 mg/dL (0.2-1.3); Blood Urea Nitrogen 16 mg/dL (9-20); Carbon Dioxide 25 mmol/L (22-32); Chloride 105 mmol/L (98-107); Cholesterol 97 mg/dL (140-199); Estimated Glomerular Filt Rate > 60 mL/min (>60); Globulin 2.8 g/dL (1.7-4.1); Glucose 132 mg/dL (80-110); HDL Cholesterol 51 mg/dL (40-60); HEMOLYSIS < 15 (0-50); LDL Cholesterol Calculated 28 mg/dL (<100); Potassium 4.3 mmol/L (3.4-5.1); Sodium 135 mmol/L (137-145); Total Protein 6.9 g/dL (6.3-8.2); Triglycerides 88 mg/dL (35-150)
[2023-09-29 13:04] LABS: TSH w/ Reflex to FT4 1.23 uIU/mL (0.47-4.68)
[2023-09-29 13:22] LABS: Vitamin B12 Reflex MMA if <400 273 pg/mL (239-931)
[2023-09-29 14:07] LABS: Microalbumin Urine Random < 0.6 mg/dL (0-1.6)
[2023-09-30 07:12] LABS: Apolipoprotein B 34 mg/dL (<90)
== END ==
PROVIDERS: Family Provider Family Medicine; PCP Family Medicine; Referring Provider Family Medicine; Visit Provider Family Medicine
DX: R41.3 Other amnesia (principal); I10 Essential (primary) hypertension; G89.29 Other chronic pain; R51.9 Headache, unspecified; E11.9 Type 2 diabetes mellitus without complications
CPT/HCPCS: 36415; 80053; 80061; 82043; 82172; 82570; 82607; 83921; 84443; 85025

== ENCOUNTER 2024-04-12 09:03 | Day surgery (SDC) | payer MEDICARE, SELFPAY ==
[2024-04-12 10:49] VITALS: BP 132/78; PULSE 86; RESP 16; TEMP 36.8; O2SAT 95
[2024-04-12] MEDS: SODIUM CHLORIDE 0.9% 1,000 ML 42 ML IV (10:54)
--- NOTE | 2024-04-12 11:47 | P.HP_ITS ---
History of Present Illness History of Present Illness Date Patient Seen: 04/12/24 Time Patient Seen: 11:52 Chief complaint: [facility] Medical History (Updated 04/12/24 @ 11:54 by Madeleine Covarrubias MD) Venous stasis dermatitis of both lower extremities Osteoarthritis of left knee Diabetes mellitus Skin neoplasm Actinic keratosis Psoriasis Hypertension Hyperlipidemia Surgical History (Updated 12/30/21 @ 17:11 by Kayden Kelsey MD) Status post right knee replacement Social History (Updated 10/03/23 @ 10:28 by Kayden Kelsey MD) Smoking Status: Former smoker Tobacco: How many years used: 4 alcohol intake: former substance use type: does not use Meds Home Medications and Allergies Home Medications Medication Instructions Recorded Confirmed Type clobetasol 0.05 % scalp solution See Rx Instructions .Route 10/13/22 01/02/24 Rx .COMPLEX #50 mL rosuvastatin 5 mg tablet 5 mg PO DAILY #90 tabs 10/03/23 04/12/24 Rx semaglutide 2 mg/dose (8 mg/3 mL) 2 mg (0.75 mL) SUBCUT QWEEK #3 mL 10/03/23 04/12/24 Rx subcutaneous pen injector (Ozempic) hydrochlorothiazide 25 mg tablet 25 mg PO DAILY #90 tabs 12/12/23 04/12/24 Rx lisinopril 20 mg tablet 20 mg PO BID #180 tabs 01/02/24 04/12/24 Rx Allergies Allergy/AdvReac Type Severity Reaction Status Date / Time Penicillins Allergy Mild Childhood Verified 04/12/24 10:37 rash Review of Systems Review of Systems ROS: Yes All systems reviewed with the patient and are negative except as otherwise documented Exam Vital Signs (past 8 hours): - 04/12/24 10:49 Temperature 98.2 F Pulse Rate 86 Respiratory Rate 16 Blood Pressure 132/78 Pulse Oximetry 95 Oxygen Delivery Method Room Air Oxygen Delivery Method Room Air Narrative Exam Narrative: Normal abdominal exam. Assessment & Plan Assessment and plan (1) Colon cancer screening: Problem details: Had a NORMAL colonoscopy 12 yrs ago, had a good bowel prep, and ready for his colonoscopy, will do it NOW. Status: Acute Time-Based Coding :: [TOTAL MINUTES] spent with patient and on the chart (including review of chart, obtaining history, exam, reviewing outside data, placing orders, documenting exam and treatment plan, and counseling patient) on [DATE].
--- NOTE | 2024-04-12 11:47 | PM.OP.COLON ---
Operative Date/Time/Diagnoses Date of procedure: 04/12/24 Time of procedure: 11:54 Procedure & Clinicians Surgeon: Madeleine Covarrubias Procedure Notes Procedure in detail: OPERATIVE / PROCEDURE NOTE Ignacio Roberts, 1955, 68,Male,CSN: [id number] 04/12/24 PREOPERATIVE DIAGNOSIS: Last colonoscopy was NORMAl 12 yrs ago, needs screening colonoscopy.. POSTOPERATIVE DIAGNOSIS: Same + Per the colonoscopy to the cecum: mild sigmoid diverticulosis noted + 1 cm Para cecal polypectomy performed. PROCEDURE DONE: Colonoscopy to the cecum. ANESTHESIA: MAC per Anesthesia. COMPLICATIONS: None. SPECIMENS: None. ESTIMATED BLOOD LOSS: NONE. CONDITION: Stable to the PACU. OPERATIVE DESCRIPTION: After proper informed consent was signed by the patient knowing all the risks, benefits, and potential complications and possible alternatives of the procedure, the patient was appropriately identified. Ignacio Roberts underwent a bowel prep that was very efficient yesterday, and the colon was clean. After institution of sedation on his left lateral decubitus position, a rectal exam was performed. Normal rectal and anal tone was found. The Olympus colonoscope was placed into his anus and under direct visualization was advanced from the rectum to the rectosigmoid to the sigmoid to the left colon, splenic flexure, transverse colon, hepatic flexure, ascending colon, and all the way to the cecum. Circumferential visualization of the mucosa was possible. The appendix aperture was noted. The ileocecal valve was noted. No large tumors. No ulcers. No inflammatory bowel disease changes were noted. Multiple diverticulae noted in the sigmoid colon. In the rectum, the scope was retroflexed, and Grade I internal hemorrhoids were noted. The scope was straightened back again. The colon was decompressed, and the scope was retracted out uneventfully. The patient tolerated the procedure well without any complications, was sent to the PACU in stable condition. RECOMMENDATIONS: Continue high-fiber diet - 30-40 gm/day with daily fiber supplementation. F/u colonoscopy is recommended after 10 years.
[2024-04-12 12:20] VITALS: BP 144/80; PULSE 85; RESP 14; TEMP 36.5; O2SAT 98
[2024-04-12 12:25] VITALS: BP 146/67; PULSE 78; RESP 14; O2SAT 98
[2024-04-12 12:30] VITALS: BP 141/88; PULSE 81; RESP 12; O2SAT 98
[2024-04-12 12:34] VITALS: BP 146/87; PULSE 82; RESP 14; TEMP 36.5; O2SAT 97
== END 2024-04-12 12:52 | disposition home or self-care (01) ==
PROVIDERS: Family Provider Family Medicine; PCP Family Medicine; Referring Provider Surgery; Visit Provider Surgery
PROC: 0DJD8ZZ Inspection of Lower Intestinal Tract, Via Natural or Artificial Opening Endoscopic (ICD-10-PCS; CPT 45378; principal; 2024-04-12 10:15)
DX: Z12.11 Encounter for screening for malignant neoplasm of colon (principal); K57.30 Diverticulosis of large intestine without perforation or abscess without bleeding; K64.0 First degree hemorrhoids
CPT/HCPCS: G0121; 45378; 45385; J2704

== ENCOUNTER → 2024-05-10 11:24 | Outpatient (CLI) | payer MEDICARE, SELFPAY ==
[2024-05-10 12:59] LABS: Hemoglobin A1C% w Est Avg Glu 5.8 % (4.0-6.0)
[2024-05-10 13:14] LABS: Alanine Aminotransferase 37 IU/L (<50); Albumin 4.1 g/dL (3.5-5.0); Albumin Globulin Ratio 1.5 (1.0-2.8); Alkaline Phosphatase 80 U/L (38-126); Aspartate Aminotransferase 32 IU/L (17-59); Bilirubin Total 1.1 mg/dL (0.2-1.3); Blood Urea Nitrogen 13 mg/dL (9-20); Calcium 9.6 mg/dL (8.4-10.2); Carbon Dioxide 21 mmol/L (22-32); Chloride 105 mmol/L (98-107); Estimated Glomerular Filt Rate > 60 mL/min (>60); Globulin 2.7 g/dL (1.7-4.1); Glucose 154 mg/dL (80-110); HEMOLYSIS < 15 (0-50); Potassium 4.3 mmol/L (3.4-5.1); Sodium 136 mmol/L (137-145); Total Protein 6.8 g/dL (6.3-8.2)
== END ==
PROVIDERS: Family Provider Family Medicine; PCP Family Medicine; Referring Provider Family Medicine; Visit Provider Family Medicine
DX: E11.9 Type 2 diabetes mellitus without complications (principal); I10 Essential (primary) hypertension; E78.5 Hyperlipidemia, unspecified
CPT/HCPCS: 36415; 80053; 83036

== ENCOUNTER → 2024-08-09 14:52 | Outpatient (CLI) | payer MEDICARE, SELFPAY ==
[2024-08-09 15:15] LABS: Add Manual Diff / Slide Review NO; Basophils Absolute Auto 0 /uL (0-100); Basophils Percent Auto 0.6 % (0-2); Eosinophils Absolute Auto 400 /uL (0-450); Eosinophils Percent Auto 5.5 % (2-4); Hematocrit 42.2 % (41-53); Hemoglobin 14.7 g/dL (13.5-17.5); Lymphocytes Absolute Auto 1400 /uL (1100-4500); Lymphocytes Percent Auto 21.3 % (25-40); Mean Corpuscular HGB Conc 34.8 % (30-36); Mean Corpuscular Hemoglobin 31.7 PG (26-34); Mean Corpuscular Volume 90.9 fL (80-100); Monocytes Absolute Auto 700 /uL (0-900); Monocytes Percent Auto 10.4 % (3-14); Neutrophils Absolute Auto 4100 /uL (1500-7000); Neutrophils Percent Auto 62.2 % (50-75); Platelet Count 185 X10^3/uL (150-400); Red Blood Cell Count 4.64 X10^6/uL (4.5-5.9); Red Cell Distribution Width 12.8 % (11.6-14.8); White Blood Cell Count 6.6 X10^3/uL (4.5-11.0)
[2024-08-09 15:33] LABS: Alanine Aminotransferase 36 IU/L (<50); Albumin 4.5 g/dL (3.5-5.0); Albumin Globulin Ratio 1.6 (1.0-2.8); Alkaline Phosphatase 97 U/L (38-126); Aspartate Aminotransferase 34 IU/L (17-59); BUN Creatinine Ratio 16.5 (6-22); Bilirubin Total 0.6 mg/dL (0.2-1.3); Bilirubin Unconjugated 0.3 mg/dL (0.0-1.1); Blood Urea Nitrogen 15 mg/dL (9-20); Calcium 9.6 mg/dL (8.4-10.2); Carbon Dioxide 25 mmol/L (22-32); Chloride 104 mmol/L (98-107); Cholesterol 120 mg/dL (140-199); Estimated Glomerular Filt Rate > 60 mL/min (>60); Globulin 2.8 g/dL (1.7-4.1); Glucose 109 mg/dL (70-99); HDL Cholesterol 48 mg/dL (40-60); HEMOLYSIS < 15 (0-50); Hemoglobin A1C% w Est Avg Glu 5.6 % (4.0-6.0); LDL Cholesterol Calculated 46 mg/dL (<100); Potassium 4.3 mmol/L (3.4-5.1); Sodium 137 mmol/L (137-145); Total Protein 7.3 g/dL (6.3-8.2); Triglycerides 130 mg/dL (35-150)
[2024-08-09 16:03] LABS: TSH w/ Reflex to FT4 1.49 uIU/mL (0.47-4.68)
== END ==
PROVIDERS: Family Provider Family Medicine; PCP Family Medicine; Referring Provider Family Medicine; Visit Provider Family Medicine
DX: L40.9 Psoriasis, unspecified (principal); E11.69 Type 2 diabetes mellitus with other specified complication; E78.5 Hyperlipidemia, unspecified; I10 Essential (primary) hypertension; B35.1 Tinea unguium; T50.905A Adverse effect of unspecified drugs, medicaments and biological substances, initial encounter
CPT/HCPCS: 36415; 80053; 80061; 80076; 83036; 84443; 85025